=== PATIENT | female | born 1940 | race Caucasian/White ===

== ENCOUNTER 2023-11-21 09:52 | Outpatient (RCR) | payer MEDICARE, OTHER, SELFPAY ==
[2023-11-21 09:07] LABS: Hematocrit 33.8 % (37.0-47.0); Hemoglobin 11.1 g/dL (12.0-16.0); Mean Corp Hgb Conc. 32.8 g/dL (33.0-37.0); Mean Corpuscular Hgb 30.2 pg (27.0-31.0); Mean Corpuscular Volume 92.1 fL (81.0-99.0); Red Blood Cell Count 3.67 10^6/uL (4.20-5.40); Red Cell Dist. Width 22.1 % (11.5-14.5); White Blood Cell Count 19.4 10^3/uL (4.8-10.8)
[2023-11-21 09:50] LABS: % Basophils 5.7 % (0-2); % Eosinophils 4.2 % (0-6); % Lymphocytes 6.2 % (20.5-51.1); % Monocytes 19.6 % (1.7-9.3); % Neutrophils 46.3 % (42.2-75.2); Absolute Basophils 0.9 10^3/uL (0-0.2); Absolute Eosinophils 0.6 10^3/uL (0-0.7); Absolute Immature Granulocytes 2.8 10^3/uL (0-0.05); Absolute Neutrophils 7.1 10^3/uL (1.4-6.5); Nucleated Red Blood Cells % 30.2 %
[2023-11-21 09:57] LABS: PT 12.3 Sec (11.4-14.6)
[2023-11-21 10:20] LABS: ALT (SGPT) 43 U/L (0-35); AST (SGOT) 70 U/L (14-36); Albumin 4.8 g/dl (3.5-5.0); Alkaline Phosphatase 72 U/L (38-126); Blood Urea Nitrogen 20 mg/dl (7-17); Calcium 9.3 mg/dl (8.4-10.2); Carbon Dioxide 25 mmol/L (22-30); Chloride 106 mmol/L (98-107); Glucose 90 mg/dl (70-99); Iron 203 ug/dl (37-170); Percent Saturation 74 % (20-50); Potassium 4.5 mmol/L (3.5-5.1); Sodium 136 mmol/L (135-145); Total Bilirubin 1.1 mg/dl (0.2-1.3); Total Iron Binding Capacity 273 ug/dl (265-497); Total Protein 7.4 g/dl (6.3-8.2); eGFR > 60.00
[2023-11-21 11:23] LABS: Platelet Count 86 10^3/uL (130-400)
[2023-11-21 15:53] LABS: Absolute Neutrophils -Man Diff 9.8 10^3/uL (1.4-6.5); Band Neutrophils 10 % (0-3); Eosinophils 6 % (0-6); Lymphocytes 6 % (20-51); Metamyelocytes 4 % (-); Monocytes 15 % (2-9); Myelocytes 14 % (-); Segmented Neutrophils 41 % (42-75)
[2023-11-21 15:54] LABS: Blasts 4 % (-); Normal RBC Morphology No; Platelets Checked Yes
[2023-11-21 15:56] LABS: Total Cells Counted 100
[2023-11-21 15:57] LABS: Acanthocytes 1+; Hypochromasia 1+; Ovalocytes 1+; Spherocytes 1+; Stomatocytes 1+; Tear Drop Red Blood Cells 1+
== END 2023-11-22 23:59 | disposition home or self-care (01) ==
LOC: OID 09:52
PROVIDERS: ATTENDING PHYSICIAN Internal Medicine Hematology & Oncology; FAMILY PHYSICIAN Family Medicine
DX: D47.3 Essential (hemorrhagic) thrombocythemia (principal); D75.81 Myelofibrosis; R53.83 Other fatigue
CPT/HCPCS: 80053; 82728; 83540; 83550; 85025; 85610; 85730

== ENCOUNTER → 2023-12-04 09:13 | Outpatient (REF) | payer MEDICARE, OTHER, SELFPAY ==
[2023-12-04 09:40] VITALS: BP 136/75; BP_SYST 75
[2023-12-04 09:45] LABS: Hematocrit 30.7 % (37.0-47.0); Hemoglobin 9.9 g/dL (12.0-16.0); Mean Corp Hgb Conc. 32.2 g/dL (33.0-37.0); Mean Corpuscular Hgb 30.7 pg (27.0-31.0); Platelet Count 92 10^3/uL (130-400); Red Blood Cell Count 3.23 10^6/uL (4.20-5.40); Red Cell Dist. Width 22.6 % (11.5-14.5); White Blood Cell Count 16.5 10^3/uL (4.8-10.8)
[2023-12-04 10:15] VITALS: BP 105/67
[2023-12-04 10:40] LABS: Absolute Neutrophils -Man Diff 9.2 10^3/uL (1.4-6.5); Band Neutrophils 19 % (0-3); Segmented Neutrophils 37 % (42-75)
[2023-12-04 10:41] LABS: Eosinophils 2 % (0-6); Monocytes 5 % (2-9)
[2023-12-04 10:42] LABS: Metamyelocytes 4 % (-); Myelocytes 8 % (-)
[2023-12-04 10:43] LABS: Normal RBC Morphology No; Nucleated Red Blood Cells 72 (-); Platelets Checked YES
[2023-12-04 10:44] LABS: Basophilic Stippling Slight; Polychromasia Slight
[2023-12-04 10:45] LABS: Ovalocytes FEW
[2023-12-04 10:46] LABS: Blasts 1 % (-); Lymphocytes 12 % (20-51); Total Cells Counted 100
[2023-12-04] MEDS: NSS (PRESERVATIVE FREE) 0.25 ML IV (11:03)
[2023-12-04 11:41] VITALS: BP 110/63; BP_SYST 68
[2023-12-04 11:50] VITALS: BP 104/68; BP_SYST 68
[2023-12-04 12:25] VITALS: BP 104/68
== END ==
LOC: RADI 09:13
PROVIDERS: ATTENDING PHYSICIAN Nurse Practitioner Adult Health; FAMILY PHYSICIAN Nurse Practitioner Family
DX: D46.9 Myelodysplastic syndrome, unspecified (principal); D69.6 Thrombocytopenia, unspecified; D68.8 Other specified coagulation defects
CPT/HCPCS: 88305; 88311; 88312; 36415; 38222; 77012; 85025; 88313; 88341; 88342

== ENCOUNTER 2024-04-19 22:50 | Inpatient (IN) | payer MEDICARE, SELFPAY ==
[2024-04-19 18:50] VITALS: BP 123/51
[2024-04-19 19:21] LABS: Hematocrit 31.5 % (37.0-47.0); Hemoglobin 10.5 g/dL (12.0-16.0); Mean Corp Hgb Conc. 33.3 g/dL (33.0-37.0); Mean Corpuscular Hgb 30.3 pg (27.0-31.0); Mean Platelet Volume 9.5 fL (7.4-10.4); Platelet Count 110 10^3/uL (130-400); Red Blood Cell Count 3.46 10^6/uL (4.20-5.40); Red Cell Dist. Width 20.7 % (11.5-14.5); White Blood Cell Count 6.6 10^3/uL (4.8-10.8)
[2024-04-19 19:27] LABS: Lactic Acid 1.5 mmol/L (0.7-2.0)
[2024-04-19 19:29] LABS: ALT (SGPT) 28 U/L (0-35); AST (SGOT) 51 U/L (14-36); Albumin 4.4 g/dl (3.5-5.0); Alkaline Phosphatase 65 U/L (38-126); Blood Urea Nitrogen 22 mg/dl (7-17); Calcium 8.7 mg/dl (8.4-10.2); Carbon Dioxide 21 mmol/L (22-30); Chloride 100 mmol/L (98-107); Glucose 139 mg/dl (70-99); Potassium 4.1 mmol/L (3.5-5.1); Sodium 132 mmol/L (135-145); Total Bilirubin 1.3 mg/dl (0.2-1.3); Total Protein 6.8 g/dl (6.3-8.2); eGFR > 60.00
[2024-04-19 20:07] LABS: Absolute Neutrophils -Man Diff 4.6 10^3/uL (1.4-6.5); Band Neutrophils 2 % (0-3); Lymphocytes 5 % (20-51); Monocytes 3 % (2-9); Segmented Neutrophils 68 % (42-75)
[2024-04-19 20:08] LABS: Atypical Lymphocytes 3 %; Metamyelocytes 5 % (-); Myelocytes 12 % (-); Normal RBC Morphology No; Nucleated Red Blood Cells 21 (-); Platelets Checked Yes
[2024-04-19 20:09] LABS: Anisocytosis 1+; Macrocytosis 1+; Microcytosis 1+; Polychromasia Slight
[2024-04-19 20:10] LABS: Basophilic Stippling Slight; Ovalocytes Slight; Stomatocytes Slight
[2024-04-19 20:11] LABS: Tear Drop Red Blood Cells 1+; Total Cells Counted 100
--- NOTE | 2024-04-19 20:29 | ED.GENMED ---
History of Present Illness
General
Chief Complaint: Change in Mental Status
Time Seen by Provider: 04/19/24 20:29
History of Present Illness
History of Present Illness:
HPI: Patient presents with change in mental status and was last seen at her baseline yesterday around 9 PM. I spoke to the daughter at bedside who states this is a major change in her mental status. She normally is very talkative may only have
some very minor cognitive deficits at baseline; she does not have dementia. The patient is currently very limited historian.
EXAM:
GENERAL: The patient appears generally weak and debilitated
HEENT: Moist oral mucosa
CARDIOVASCULAR: No murmurs, tachycardic heart rate, regular rhythm, No chest wall tenderness
PULMONARY: No respiratory distress, breath sounds are clear and equal
ABDOMEN: Soft with no peritoneal signs, no tenderness
NEUROLOGIC: Appears generally weak in all extremities, there is no dysarthria but she does seem somewhat aphasic at times, she knows she is at '[facility]' but cannot tell me what type of building she is in
PSYCHIATRIC: The patient has limited insight and judgment and is a generally limited historian
EXTREMITIES: Ecchymosis noted to the medial aspect of the left ankle and there is some scattered areas of ecchymosis to the lower extremities
SKIN: As above
TIME OF INITIAL ENCOUNTER: 9:15 PM
NUMBER AND COMPLEXITY OF PROBLEMS ADDRESSED AT THE ENCOUNTER
� Chronic conditions affecting care: Has had abnormal white count and platelet count in the past
� Acute Exacerbation and/or Progression of Chronic Illness: This is an acute problem
� Differential Diagnosis includes: Acute viral syndrome, bacteremia, sepsis, low suspicion for meningitis as she has no apparent pain
AMOUNT AND/OR COMPLEXITY OF DATA TO BE REVIEWED AND ANALYZED
� I performed an independent evaluation of and my interpretation is:
EKG:
CT: CT of the brain personally viewed and shows no acute abnormality
X-rays:
Laboratory Studies: White count normal at 6.6, hemoglobin 10.5, sodium slightly low at 132, bicarb 21, glucose 139, lactic 1.5, CK normal
Other:
� Review of other/old records: Hemoglobin in November of this year was 9.9
� Clinical information was obtained by an independent historian: I spoke to the daughter at bedside
� Prescriptions/Medications Considered but not given:
� Further testing considered but not performed:
RISK OF COMPLICATIONS AND/OR MORBIDITY OR MORTALITY OF PATIENT MANAGEMENT
� Social determinants of health affecting care: Lives at home
� Discussion with other providers: Hospitalist, Dr. Paul for admission at 10:18 PM
� Escalation of care including admission/observation vs risk of discharge considered: The patient arrived tachycardic and febrile with rectal temperature of 104.9 Fahrenheit upon arrival. She was given a gram of Tylenol. On
reassessment at 10:15 PM, she is more interactive, awake and alert. Given her age with high fever I am concerned about the possibly of bacteremia. She initially met sepsis criteria upon arrival. Blood cultures pending.
Phy Exam
Physical Exam
Physical Exam:
See HPI
Course
Orders/Labs/Results
Orders:
Orders
04/19/24 19:06
Complete Blood Count/With Diff Urgent
Comprehensive Metabolic Panel Urgent
Creatine Phosphokinase Urgent
Comment: ADD ON
Lactic Acid Urgent
Manual Differential Urgent
Blood Culture Urgent
ALFONSO Source: Blood/Venous
Specimen Description:
Date Specimen was Collected: 04/19/24
Time Specimen was Collected: 18:56
04/19/24 19:52
CT Head W/o Iv Contrast Urgent
Comment:
Reason For Exam: change in mental status
04/19/24 20:55
Urinalysis Reflex To Culture Urgent
Date Specimen was Collected: 04/19/24
Time Specimen was Collected: 20:39
Urine Microscopic Reflex Cult Urgent
Blood Culture Urgent
ALFONSO Source: Blood/Venous
Specimen Description:
Date Specimen was Collected: 04/19/24
Time Specimen was Collected: 20:39
Urine Culture Urgent
ALFONSO Source: U
Specimen Description:
Date Specimen was Collected: 04/19/24
Time Specimen was Collected: 20:39
04/19/24 21:00
0.9% Sodium Chloride 1000 ml [Nss] 1,000 ml IV 1,000 mls/hr
Acetaminophen [Tylenol/Feverall] 1,300 mg .ROUTE .STK-MED ONE
04/19/24 21:01
Add On- LAB Urgent
Tests Added?: ck
Acetaminophen [Tylenol/Feverall] 1,000 mg RECTAL NOW STA
04/19/24 21:05
CR Chest Portable - 1 View Urgent
Comment:
Reason For Exam: fever
Reason Study Needs to be Portable: Patient Unstable
04/19/24 21:37
0.9% Sodium Chloride 500 ml [Nss] 500 ml IV BOLUS
CefTRIAXone [Rocephin] 1,000 mg IV NOW STA
04/19/24 21:43
COVID-19 Antigen Urgent
Source: Nasal Swab
Comment: ,
Influenza A+B Rapid Molecular Urgent
ALFONSO Source: Nasal Swab
Specimen Description:
Date Specimen was Collected: 04/19/24
Time Specimen was Collected: 21:39
Abnormal Lab Results
04/19/24 04/19/24
19:06 20:55
RBC 3.46 L 10^6/uL
(4.20-5.40)
Hgb 10.5 L g/dL
(12.0-16.0)
Hct 31.5 L %
(37.0-47.0)
RDW 20.7 H %
(11.5-14.5)
Plt Count 110 L 10^3/uL
(130-400)
Lymphocytes (Manual) 5 L %
(20-51)
Sodium 132 L mmol/L
(135-145)
Carbon Dioxide 21 L mmol/L
(22-30)
BUN 22 H mg/dl
(7-17)
Glucose 139 H mg/dl
(70-99)
AST 51 H U/L
(14-36)
Urine Ketones 3+ A
(Negative)
Ur Occult Blood Reflex 3+ A
(Negative)
Urine Bacteria (Reflex) Many A
(Negative)
Urine Albumin (Reflex) 1+ A
(Neg - Trace)
04/19/24 19:06
04/19/24 19:06
Vital Signs
Initial and Last Documented VS:
Initial Vital Signs
Temp Pulse Resp BP Pulse Ox
99.6 F 108 20 123/51 96
04/19/24 18:50 04/19/24 18:50 04/19/24 18:50 04/19/24 18:50 04/19/24 18:50
Last Documented Vital Signs
Temp Pulse Resp BP Pulse Ox
102.7 F H 84 20 106/48 98
04/19/24 22:00 04/19/24 22:00 04/19/24 22:00 04/19/24 22:00 04/19/24 22:00
*Critical Care Note
Total Time (30-74mins, 75-104mins- exclusive of procedures): Not Applicable
ED Attending Note
-
Portions of this chart may have been created with voice recognition software.� Occasional wrong word or��sound alike� substitutions may have occurred due to the inherent limitations of voice recognition software.
Discharge Plan
Departure
Patient Disposition: Admit
Date of Disposition: 04/19/24
Time of Disposition: 22:18
Presentation/result/management discussed w/ accepting MD/DO: Hospitalist
Discharge Problem:
Sepsis
Prescriptions:
No Action
aspirin [Aspirin Low-Strength] 81 mg Tablet,Delayed Release (Dr/Ec)
81 mg PO DAILY
timolol 0.5 % Drops
1 drp BOTH EYES DAILY
Jakafi 5 mg Tablet
5 mg PO BID
Unknown Vitamins/Supplements
1 dose PO DAILY
Patient Comments:
04/19/24: patient is unsure of what vitamins and supplements she takes
Referrals:
UNKNOWN - PT DOES,NOT KNOW [Unknown Provider] -
Interventions
Interventions:
*Risk Screen - Suicide Last Done: 04/19/24 18:50
*General Assessment Last Done: 04/19/24 18:50
*Neglect/Abuse Screening Last Done: 04/19/24 18:50
Discharge Date and Time
Print Language: MAORI
[2024-04-19 20:43] VITALS: BMI 23.9
[2024-04-19 20:44] VITALS: BP 125/56
[2024-04-19] MEDS: TYLENOL/FEVERALL 1000 MG RECTAL (21:02)
[2024-04-19 21:04] LABS: Urine Albumin 1+ (Neg - Trace); Urine Bilirubin Negative (Negative); Urine Character Clear (Clear); Urine Color Yellow; Urine Glucose Negative (Negative); Urine Ketone 3+ (Negative); Urine Leukocyte Negative (Negative); Urine Nitrite Negative (Negative); Urine Occult Blood 3+ (Negative); Urine Urobilinogen Negative (Neg - 1+)
[2024-04-19 21:10] LABS: Urine Bacteria Many (Negative); Urine Red Blood Cell 0-2 /HPF (0-2); Urine White Cell 0-2 /HPF (0-5)
[2024-04-19 21:33] LABS: Creatine Phosphokinase 59 U/L (30-135)
[2024-04-19] MEDS: NSS 500 IV (21:51)
[2024-04-19] MEDS: NSS 1000 IV (21:55)
[2024-04-19 22:00] VITALS: BP 106/48
[2024-04-19 22:08] LABS: COVID-19 Antigen Negative (Negative)
--- NOTE | 2024-04-19 22:40 | HPS.HSE ---
Family Physician
-
Family Physician: MARK Adams
Chief Complaint
-
altered mental status
History of Present Illness
83-year-old female past medical history of hyperlipidemia, osteoporosis, myeloproliferative disorder, glaucoma, presenting with change in mental status. Patient lives alone and she was last seen at her baseline yesterday around 9 PM. Today she was
very tired and noted to be lethargic with change in mental status as per daughter. Patient denies any focal symptoms apart from some mild headache. She denies neck pain, body aches, sore throat, runny nose, cough, shortness of breath, nausea or
vomiting, abdominal pain, diarrhea, urinary symptoms, abdominal pain. Her last bowel was yesterday.
Patient denies smoking or alcohol use.
Medical History
Past Medical History
Past Medical History: Reports Other (hyperlipidemia, osteoporosis, myeloproliferative disorder, glaucoma,)
Past Surgical History: Reports None
Social History
Tobacco: Non-smoker
Alcohol: None
Drug: None
Family History
Family History: Not pertinent
Allergies / Home Medications
Allergies reflects when Allergies were last updated in [employer].
Home Medications with original date entered in [employer]
Allergy/Medication List:
Allergies
Allergy/AdvReac Type Severity Reaction Status Date / Time
Sulfa (Sulfonamide Allergy Unknown Verified 04/19/24 18:50
Antibiotics)
Home Medications
aspirin 81 mg tablet,delayed release 81 mg PO DAILY 10/31/22
Unknown Vitamins/Supplements 1 dose PO DAILY 04/19/24
ruxolitinib 5 mg tablet (Jakafi) 5 mg PO BID 04/19/24
timolol 0.5 % eye drops 1 drp BOTH EYES DAILY 04/19/24
Review of Systems
-
History Source: Patient
A 12 point ROS was completed and negative except as noted: Yes
Constitutional: Reports See HPI
EENT: Reports No Symptoms
Respiratory: Reports No Symptoms
Cardiac: Reports No Symptoms
Abdomen/GI: Reports No Symptoms
: Reports No Symptoms
Musculoskeletal: Reports No Symptoms
Skin: Reports No Symptoms
Neurological: Reports No Symptoms
Endocrine: Reports No Symptoms
Hematologic/Lymphatic: Reports No Symptoms
Psych: Reports No Symptoms
Physical Exam
Vital Signs
Vital Signs
Temp Pulse Resp BP Pulse Ox
102.7 F H 84 20 106/48 98
04/19/24 22:00 04/19/24 22:00 04/19/24 22:00 04/19/24 22:00 04/19/24 22:00
Physical Exam
General: Well Developed, Well Nourished and No Apparent Distress
HEENT: NormoCephalic, Moist mucous membranes and Atraumatic
Respiratory: Clear
Cardiac: S1/S2 and Regular Rhythm; No Murmur or Rub
GI: Soft, Non Tender, Non Distended and Normal Bowel Sounds; No Organomegaly
Rectal: Deferred by Provider
Musculoskeletal: No Clubbing, No Cyanosis and No Edema
Skin: No Rash
Neuro: Nonfocal/grossly intact
Laboratory Results
-
04/19/24 19:06
04/19/24 19:06
Laboratory Results
Lactic Acid 1.5 mmol/L (0.7-2.0) 04/19/24 19:06
Total Bilirubin 1.3 mg/dl (0.2-1.3) 04/19/24 19:06
AST 51 U/L (14-36) H 04/19/24 19:06
ALT 28 U/L (0-35) 04/19/24 19:06
Alkaline Phosphatase 65 U/L (38-126) 04/19/24 19:06
Data Reviewed
-
Lab Data: Labs Reviewed by me
Old Records: Reviewed
Impression/Plan
-
IMPRESSION:
PLAN:
# SIRS (fever, tachycardia, tachypnea) unknown source
-no focal symptoms to suggest source
-2 bands on differential
-Patient's mental status is improved significantly
-Urinalysis unremarkable
-Chest x-ray negative
-COVID-negative
-Influenza negative
-Check blood cultures
-IV fluids
-Vancomycin/cefepime until blood culture results available
Myeloproliferative disorder
-On Jakafi, hold for now
Hyperlipidemia
Osteoporosis
Glaucoma
-Continue timolol drops
Full code
DVT prophylaxis�heparin
Regular diet
[2024-04-19 23:01] VITALS: BP 103/52
[2024-04-19] MEDS: ROCEPHIN 1000 MG IV (23:12)
[2024-04-19] MEDS: NSS IV ×2 (23:13→23:15)
[2024-04-20 00:15] VITALS: BP 99/69; BMI 23.6
[2024-04-20] MEDS: NSS 1000 IV ×2 (01:29→14:46)
[2024-04-20] MEDS: VANCOCIN 300 ML IV (01:30)
[2024-04-20] MEDS: VANCOCIN 300 MG IV (01:30)
[2024-04-20 07:00] VITALS: BP 104/54
--- NOTE | 2024-04-20 08:19 | PTCARENOTE ---
Relayed to Hospitalist through TT that pt temp this am was 101.2. Will give prn Tylenol, per order
[2024-04-20] MEDS: HEPARIN 5000 UNITS SC ×2 (08:24→19:13)
[2024-04-20] MEDS: TYLENOL 650 MG PO ×2 (08:24→16:22)
[2024-04-20] MEDS: ASPIR LOW (ENTERIC COATED) 81 MG PO (08:24)
[2024-04-20] MEDS: TIMOPTIC 0.5% OPHTHALMIC SOLUTION 1 DROP BOTH EYES (08:25)
[2024-04-20 08:44] LABS: Hematocrit 27.5 % (37.0-47.0); Hemoglobin 9.2 g/dL (12.0-16.0); Mean Corp Hgb Conc. 33.5 g/dL (33.0-37.0); Mean Corpuscular Hgb 30.1 pg (27.0-31.0); Mean Corpuscular Volume 89.9 fL (81.0-99.0); Nucleated Red Blood Cells % 10.8 %; Platelet Count 82 10^3/uL (130-400); Red Blood Cell Count 3.06 10^6/uL (4.20-5.40); Red Cell Dist. Width 20.8 % (11.5-14.5); White Blood Cell Count 4.4 10^3/uL (4.8-10.8)
[2024-04-20 08:55] LABS: AST (SGOT) 63 U/L (14-36); Albumin 3.4 g/dl (3.5-5.0); Alkaline Phosphatase 51 U/L (38-126); Blood Urea Nitrogen 16 mg/dl (7-17); Calcium 7.5 mg/dl (8.4-10.2); Carbon Dioxide 19 mmol/L (22-30); Chloride 108 mmol/L (98-107); Estimated Creatinine Clearance 50 ml/min; Glucose 111 mg/dl (70-99); Potassium 3.2 mmol/L (3.5-5.1); Sodium 135 mmol/L (135-145); Total Protein 5.7 g/dl (6.3-8.2); eGFR > 60.00
[2024-04-20 09:05] LABS: ALT (SGPT) 33 U/L (0-35)
--- NOTE | 2024-04-20 09:07 | PHA.VAN.IN ---
Assessment
- Assessment
Renal Function: Appears similar to baseline
Maximum Temperature: 104.9 - 04/19/24 @2044
Concomitant Antimicrobials: cefepime
AUC Dosing Plan
- Dosing Variables
Dosing Weight (kg): 60
Dosing CrCl (ml/min): 50
Vd coefficient (L/kg): 0.7
- Empiric Dosing
Initial / Loading Dose: 1500 mg - 0130 04/20
Maintenance Regimen: 1000 mg q24h - first dose later today
Estimated AUC (mcg*h/mL): 531
Estimated Peak (mcg*h/mL): 35.7
Estimated Trough (mcg/ml): 12.4
Estimated Half Life (H): 15.1
- Monitoring
No levels ordered at this time: consider levels when pt nears steady state
Pharmacokinetics Vancomycin I
- -
Patient Age: 83
Patient Sex: Female
Vancomycin Day #: 1
Indication: Bacteremia
Requesting Provider: Vinita
Pertinent Antimicrobial Allergies:
sulfonamide antibiotics
Height / Weight:
Height 5 ft 3 in
Actual Weight 60.498 kg
Pertinent Past Medical History: myelproliferative disorder ( on Jakafi)
- Vital Signs / Lab Results
Temp Pulse Resp BP Pulse Ox
101.2 F H 84 16 104/54 92
04/20/24 07:00 04/20/24 07:00 04/20/24 07:00 04/20/24 07:00 04/20/24 08:35
Lab Results - Hematology
04/19/24 04/20/24
19:06 08:07
WBC 6.6 4.4 L
Band Neutrophils 2
Lab Results - Chemistry
04/19/24 04/20/24
19:06 08:07
BUN 22 H 16
Creatinine 0.8 0.7
Estimated Creat Clear 50
Albumin 4.4 3.4 L
04/19/24
19:06
Lactic Acid 1.5
Lab Results - Urine
04/19/24 04/19/24
20:55 21:43
Urine Nitrite (Reflex) Negative Cancelled
Leukocyte Esterase Rfl Negative Cancelled
Urine WBC (Reflex) 0-2
Urine Bacteria (Reflex) Many A
Microbiology Results
04/19/24 21:43 Influenza Types A & B (DARIN) - Final
Nasal Swab Negative for Influenza A & B, NAAT
Negative results must be combined with clinical observations
and patient history.
Nucleic Acid Amplification test (NAAT)performed on the
[employer] NOW platform.
[2024-04-20 10:07] LABS: Absolute Neutrophils -Man Diff 2.9 10^3/uL (1.4-6.5); Band Neutrophils 18 % (0-3); Segmented Neutrophils 49 % (42-75)
[2024-04-20 10:08] LABS: Atypical Lymphocytes 2 %; Lymphocytes 8 % (20-51); Metamyelocytes 6 % (-); Monocytes 1 % (2-9)
[2024-04-20 10:09] LABS: Myelocytes 13 % (-); Promyelocytes 2 % (-)
[2024-04-20 10:10] LABS: Normal RBC Morphology No; Platelets Checked YES
[2024-04-20 10:11] LABS: Nucleated Red Blood Cells 12 (-)
[2024-04-20 10:12] LABS: Microcytosis FEW
[2024-04-20] MEDS: MAXIPIME 1000 MG IV ×2 (10:12→19:13)
[2024-04-20] MEDS: STERILE WATER FOR INJECTION 10 ML IV ×2 (10:12→19:13)
[2024-04-20 10:13] LABS: Hypersegmented Neutrophil FEW; Polychromasia Slight; Toxic Granulation FEW
[2024-04-20 10:14] LABS: Stomatocytes FEW
[2024-04-20 10:15] LABS: Ovalocytes FEW; Total Cells Counted 100
--- NOTE | 2024-04-20 12:08 | CM ---
power plant operations manager reviewed patient's chart and met with patient and patient lives in an apartment on her daughter's [place] property, 2-3 steps to enter, patient is independent with adl's and ambulation, no dme, patient drives, patient is currently
requiring oxygen.
Pharmacy: [facility]
PCP: Kim Hudson
Plan; Home no needs when stable.
[2024-04-20] MEDS: VANCOCIN 200 IV (13:13)
--- NOTE | 2024-04-20 13:58 | PTCARENOTE ---
Patient febrile this am but temperature came down in the afternoon. Continues with IV abx, voiding in bedside commode, pt's daughter updated on plan of care
[2024-04-20 14:47] VITALS: BP 128/74
--- NOTE | 2024-04-20 14:49 | PTCARENOTE ---
Patient was found attempting to get off bedside commode/trying to wipe self and became too weak to stand up. She had her stool in her hand. Staff got patient back into bed and cleaned up patient and supplies. Vitals signs were taken and recorded as
follows- Temp: 98.8 axillary, BP: 128/74, HR: 94, RR: 20, SpO2: 94% on 3L. Patient answered all orientation questions correctly but appeared weaker when ambulating back to bed than earlier in shift.
--- NOTE | 2024-04-20 14:57 | PTCARENOTE ---
Patient educated on using call rizvi for OOB assistance, bed alarm on and audible under patient.
[2024-04-20 15:00] VITALS: BP 122/57
--- NOTE | 2024-04-20 15:15 | W.PN.HOSP.TC ---
Today's Communication/Plan
-
continue empiric abx
Assessment / Plan
Assessment / Plan
# SIRS (fever, tachycardia, tachypnea) unknown source
WBC 4.4k
-no focal symptoms to suggest source
-2 bands on differential
-Patient's mental status is improved significantly
-Urinalysis unremarkable
-Chest x-ray negative
-COVID-negative
-Influenza negative
- blood cultures pending
-IV fluids
-Vancomycin/cefepime until blood culture results available
Pt apparently significantly improved since admission, though etio of process remains unclear
Myeloproliferative disorder
-On Jakafi, hold for now
Hyperlipidemia
Osteoporosis
Glaucoma
-Continue timolol drops
consult Inf Dis
Consult Hematology
Full code
DVT prophylaxis�heparin
Regular diet
reviewed in room with Kamla white
Anticipated Discharge: > 48 hours
Subjective/Interval History
-
Date of Service: April 20, 2024
Feeling considerably better since admission
Objective Data
-
Labs:
Laboratory Results
04/20/24
08:07
WBC 4.4 L
Hgb 9.2 L
Hct 27.5 L
Plt Count 82 L D
Sodium 135
Potassium 3.2 L
Chloride 108 H
Carbon Dioxide 19 L
BUN 16
Creatinine 0.7
Glucose 111 H
Calcium 7.5 L
Total Bilirubin 1.0
AST 63 H
ALT 33
Alkaline Phosphatase 51
Vital Signs:
Vital Signs
Temp Pulse Resp BP Pulse Ox
98.9 F 96 20 128/74 94
04/20/24 14:47 04/20/24 14:47 04/20/24 14:47 04/20/24 14:47 04/20/24 14:47
I&O
04/19/24 04/20/24 04/21/24
06:59 06:59 06:59
Intake Total 240 / 240
Balance 240 / 240
Review of Systems
-
History Source: Patient
Constitutional: Reports Fever (104.9)
EENT: Reports No Symptoms Reported
Respiratory: Denies Cough or Trouble Breathing
Cardiac: Reports No Symptoms
Genitourinary: Denies Dysuria
Neuro: Reports No Symptoms
Physical Exam
-
General: Well Developed, Well Nourished and No Apparent Distress
HEENT: Normocephalic, Atraumatic and Moist Mucous Membranes
Respiratory: Clear to Auscultation; Negative Wheezes, Rales or Rhonchi
Cardiac: Regular Rhythm and S1/S2
GI: Soft, Nontender and Nondistended
Musculoskeletal: No Clubbing, No Cyanosis and No Edema
Neuro: Awake, Alert and Oriented
[2024-04-20 23:15] VITALS: BP 127/75
[2024-04-21] MEDS: NSS 1000 IV (02:18)
[2024-04-21] MEDS: VANCOCIN 200 IV (05:15)
[2024-04-21 07:00] VITALS: BP 116/56
[2024-04-21] MEDS: TYLENOL 650 MG PO ×2 (08:22→16:44)
[2024-04-21] MEDS: HEPARIN 5000 UNITS SC ×2 (08:22→19:38)
[2024-04-21] MEDS: ASPIR LOW (ENTERIC COATED) 81 MG PO (08:22)
[2024-04-21] MEDS: MAXIPIME 1000 MG IV ×2 (08:23→19:37)
[2024-04-21] MEDS: TIMOPTIC 0.5% OPHTHALMIC SOLUTION 1 DROP BOTH EYES (08:23)
[2024-04-21] MEDS: STERILE WATER FOR INJECTION 10 ML IV ×2 (08:23→19:38)
--- NOTE | 2024-04-21 09:28 | PHA.VAN.FU ---
Vancomycin Assessment / Plan
- Assessment
Renal Function: Stable
WBC's are: Trending Down
In the past 24 hrs, patient has been: Febrile (max temp 103 04/20 1500)
Concomitant Antimicrobials: cefepime
- Dosing Plan
Continue: vancomycin 1000 mg q24h
- Monitoring Plan
No level(s) ordered at this time: consider levels when pt reaches steady state if still on
- Follow Up
Pharmacy will continue to follow.
Vancomycin Follow UP
- -
Patient Age: 83
Patient Sex: Female
Vancomycin Day #: 2
Indication: Bacteremia
Requesting Provider: Vinita
Pertinent Antimicrobial Allergies:
sulfonamide antibiotics
Height / Weight:
Height 5 ft 3 in
Actual Weight 60.498 kg
Pertinent Past Medical History: myelproliferative disorder ( on Jakafi)
- Vital Signs / Lab Results
Temp Pulse Resp BP Pulse Ox
100.4 F H 76 18 116/56 94
04/21/24 07:00 04/21/24 07:00 04/21/24 07:00 04/21/24 07:00 04/21/24 07:00
Lab Results - Hematology
04/19/24 04/20/24
19:06 08:07
WBC 6.6 4.4 L
Band Neutrophils 2 18 H D
Lab Results - Chemistry
04/19/24 04/20/24
19:06 08:07
BUN 22 H 16
Creatinine 0.8 0.7
Estimated Creat Clear 50
Albumin 4.4 3.4 L
04/19/24
19:06
Lactic Acid 1.5
Microbiology Results
04/19/24 20:55 Urine Culture - Final
Urine NO GROWTH
04/19/24 20:55 Blood Culture - Preliminary
Blood/Venous No Growth in 24 hours- Final report to follow
04/19/24 19:06 Blood Culture - Preliminary
Blood/Venous No Growth in 24 hours- Final report to follow
04/19/24 21:43 Influenza Types A & B (DARIN) - Final
Nasal Swab Negative for Influenza A & B, NAAT
Negative results must be combined with clinical observations
and patient history.
Nucleic Acid Amplification test (NAAT)performed on the
[employer] platform.
--- NOTE | 2024-04-21 11:06 | CON.ID ---
Consultation
-
Date/Time Consultation Requested: April 20, 2024 1530
Date/Time Consultation Performed: April 21, 2024 1100
Requesting Provider: Dr. Mayito Morales
Performing Provider: Dr. Gaviota Mo
Reason for Consultation: MDS, fever
Chief Complaint / Past History
Chief Complaint
Weakness
History of Present Illness
87-year-old female with history of myeloproliferative disorder on Jakafi who started feeling unwell 2 days ago. She was very tired and weak. She had mild frontal headache. She slept most of the day and then went shopping and came home and slept
again. When her daughter came over, patient noted to be very lethargic and confused. She was brought to the hospital April 19. Patient was febrile 104.9. She was started on vancomycin and cefepime. Blood cultures negative to date. Urine culture
negative. Chest x-ray no pneumonia. Patient's mental status has improved. However she is still very tired and sleepy. She denies ill contacts. No known tick or insect bites [place]. She
has 1 dog. No sinus congestion or sore throat. No cough or shortness of breath. No nausea vomiting abdominal pain or diarrhea. No dysuria or flank pain. No rash.
Past History
Additional Past Medical History:
Myeloproliferative disorder on Jakafi
Dyslipidemia
Osteoporosis
Allergy History:
Sulfa (Sulfonamide Antibiotics) Allergy (Verified 04/19/24 18:50)
Unknown
Medications Reviewed: Yes
Current Antibiotics:
Vancomycin
Cefepime
Social History
Tobacco: Non-Smoker
Alcohol: None
Drug: None
Living: Alone
Family History
Family History: Not Pertinent
Review of Systems
Review of Systems
General: Change in Appetite; Negative Chills
HEENT: Negative Sinus Problems or Pharyngitis
Cardiovascular: Negative Chest Pain or Dyspnea
Respiratory: Negative Dyspnea or Cough
Gasteroenterology: Other (no diarrhea); Negative Nausea or Vomiting
Genital / Urological: Negative Dysuria or Flank Pain
Endocrine: Weakness
Musculoskeletal: Negative Arthralgias
Skin / Hair / Nails: Negative Rash
Neurological: Negative Dizziness
All systems: All other systems were reviewed and were negative
Vital Signs
Temp Pulse Resp BP Pulse Ox
100.4 F H 76 18 116/56 94
04/21/24 07:00 04/21/24 07:00 04/21/24 07:00 04/21/24 07:00 04/21/24 07:00
Selected Entries
04/20/24
15:00
Temp 103 F H
Physical Exam
Physical Exam
Constitutional: No Acute Distress
Head: Other (No frontal or maxillary sinus tenderness)
Eyes: No Conjunctival Hemorrhage and Sclera Anicteric
Cardiovascular: Regular Rate and S1/S2
Pulmonary: Clear
Gastrointestinal: Soft, Non Tender, Non Distended and Normal Bowel Sounds
Genito-Urinary: Negative CVA Tenderness
Extremities: Negative Edema
Musculoskeletal: Negative Joint Swelling or Joint Effusion
Neurological: AO x 3 and Other (Drowsy); Negative Meningeal Signs
Lab / Diagnostic Study Results
04/20/24 08:07
04/20/24 08:07
Total Counted 100 04/20/24 08:07
Abs Neuts (Manual) 2.9 10^3/uL (1.4-6.5) 04/20/24 08:07
Segmented Neutrophils 49 % (42-75) 04/20/24 08:07
Band Neutrophils 18 % (0-3) H D 04/20/24 08:07
Lymphocytes (Manual) 8 % (20-51) L 04/20/24 08:07
Basophils (Manual) 1 % 04/20/24 08:07
Lactic Acid 1.5 mmol/L (0.7-2.0) 04/19/24 19:06
Microbiology Results
Micro:
04/19/24 20:55 Urine Culture - Final
Urine NO GROWTH
04/19/24 20:55 Blood Culture - Preliminary
Blood/Venous No Growth in 24 hours- Final report to follow
04/19/24 19:06 Blood Culture - Preliminary
Blood/Venous No Growth in 24 hours- Final report to follow
04/19/24 21:43 Influenza Types A & B (DARIN) - Final
Nasal Swab Negative for Influenza A & B, NAAT
Negative results must be combined with clinical observations
and patient history.
Nucleic Acid Amplification test (NAAT)performed on the
[email or web address] NOW platform.
04/19/24 CXR: The lungs are clear without evidence of focal interstitial or airspace opacity to indicate pneumonia.
04/19/[address]: No acute intracranial abnormality noted.
Assessment / Plan
# Fever
# Myeloproliferative disorder on Jakafi
# Pancytopenia
- fever work-up neg to date
neg COVID/Flu, Ucx, blood cx, CXR
- Check tickbone illness panel and Babesia smear in am
-Start empiric doxycyline.
- Continue cefepime for now.
-DC Vancomycin.
- Follow temps.
[2024-04-21] MEDS: VIBRAMYCIN 100 MG PO ×2 (13:08→19:37)
[2024-04-21] MEDS: KCL 20 MEQ PO (14:44)
[2024-04-21 15:00] VITALS: BP 115/66
--- NOTE | 2024-04-21 15:18 | W.PN.HOSP.TC ---
Today's Communication/Plan
-
K supplement
continue IVF
recheck labs
recheck CXR
PT/OT
Assessment / Plan
Assessment / Plan
# SIRS (fever, tachycardia, tachypnea, TME) probably sepsis, source most likely PNA
will repeat CXR
WBC 4.4k
-no focal symptoms to suggest source
-2 bands on differential
-Patient's mental status is improved significantly, still not back to baseline
-Urinalysis unremarkable
-Chest x-ray negative
will repeat, consider chest CT
-COVID-negative
-Influenza negative
- blood cultures NGTD
-IV fluids
-Vancomycin stopped by ID and started Doxy/cefepime until blood culture results available
Pt apparently significantly improved since admission, though etio of process remains unclear, with chest congestion noted, PNA becomes a concern
Myeloproliferative disorder
-On Jakafi, hold for now
consult placed and discussed with Dr. Armas
K 4.1-->3.2
Hypokalemia, will supplement
recheck tomorrow
Hyperlipidemia
Osteoporosis
Glaucoma
-Continue timolol drops
consulted Inf Dis
Consult Hematology
input from both appreciated
Full code
DVT prophylaxis�heparin
Regular diet
reviewed in room with Kamla white 04/20
Anticipated Discharge: > 48 hours
Subjective/Interval History
-
Date of Service: April 21, 2024
Feels slightly better today, still very weak
Objective Data
-
Vital Signs:
Vital Signs
Temp Pulse Resp BP Pulse Ox
98.0 F 76 18 116/56 94
04/21/24 13:17 04/21/24 07:00 04/21/24 07:00 04/21/24 07:00 04/21/24 08:00
I&O
04/20/24 04/21/24 04/22/24
06:59 06:59 06:59
Intake Total 240 / 240 1120 / 1120
Balance 240 / 240 1120 / 1120
Review of Systems
-
History Source: Patient
Constitutional: Reports Fever (104.9 on admission, today 98.0-100.4) and Weakness
EENT: Reports No Symptoms Reported
Respiratory: Denies Cough or Trouble Breathing
Cardiac: Reports No Symptoms
Genitourinary: Denies Dysuria
Neuro: Reports No Symptoms
Physical Exam
-
General: Well Developed, Well Nourished and No Apparent Distress
HEENT: Normocephalic, Atraumatic and Moist Mucous Membranes
Respiratory: Wheezes (coarse expiratory wheeze); Negative Clear to Auscultation (significantly improved air movement today), Rales or Rhonchi
Cardiac: Regular Rhythm and S1/S2
GI: Soft, Nontender and Nondistended
Musculoskeletal: No Clubbing, No Cyanosis and No Edema
Neuro: Awake, Alert and Oriented
[2024-04-21] MEDS: D5/0.45%NSS with KCL 20 MEQ 1000 IV (15:54)
[2024-04-21 23:34] VITALS: BP 120/66
[2024-04-22 07:32] LABS: Hematocrit 26.3 % (37.0-47.0); Hemoglobin 9.1 g/dL (12.0-16.0); Mean Corp Hgb Conc. 34.6 g/dL (33.0-37.0); Mean Corpuscular Hgb 30.1 pg (27.0-31.0); Mean Corpuscular Volume 87.1 fL (81.0-99.0); Platelet Count 33 10^3/uL (130-400); Red Blood Cell Count 3.02 10^6/uL (4.20-5.40); Red Cell Dist. Width 20.3 % (11.5-14.5)
[2024-04-22 08:10] VITALS: BP 117/69
[2024-04-22 08:15] LABS: Absolute Neutrophils -Man Diff 1.7 10^3/uL (1.4-6.5); Anisocytosis 1+; Band Neutrophils 13 % (0-3); Lymphocytes 14 % (20-51); Metamyelocytes 5 % (-); Monocytes 2 % (2-9); Myelocytes 4 % (-); Normal RBC Morphology No; Nucleated Red Blood Cells 2 (-); Ovalocytes 1+; Platelets Checked Yes; Segmented Neutrophils 62 % (42-75)
[2024-04-22 08:16] LABS: Tear Drop Red Blood Cells 1+; Total Cells Counted 100
[2024-04-22 08:17] LABS: White Blood Cell Count 2.3 10^3/uL (4.8-10.8)
[2024-04-22 08:19] LABS: Blood Urea Nitrogen 16 mg/dl (7-17); Calcium 7.7 mg/dl (8.4-10.2); Carbon Dioxide 22 mmol/L (22-30); Chloride 110 mmol/L (98-107); Estimated Creatinine Clearance 59 ml/min; Glucose 124 mg/dl (70-99); Sodium 137 mmol/L (135-145); eGFR > 60.00
[2024-04-22] MEDS: HEPARIN 5000 UNITS SC (08:31)
[2024-04-22] MEDS: ASPIR LOW (ENTERIC COATED) 81 MG PO (08:31)
[2024-04-22] MEDS: STERILE WATER FOR INJECTION 10 ML IV (08:33)
[2024-04-22] MEDS: KCL 20 MEQ PO (08:33)
[2024-04-22] MEDS: VIBRAMYCIN 100 MG PO ×2 (08:34→19:57)
[2024-04-22] MEDS: MAXIPIME 1000 MG IV (08:34)
[2024-04-22] MEDS: TIMOPTIC 0.5% OPHTHALMIC SOLUTION 1 DROP BOTH EYES (08:34)
[2024-04-22] MEDS: D5/0.45%NSS with KCL 20 MEQ 1000 IV (08:37)
[2024-04-22 09:09] VITALS: BP 117/69; PULSE 81; O2SAT 98
[2024-04-22 09:16] VITALS: BP 117/69; PULSE 83; O2SAT 97
--- NOTE | 2024-04-22 10:18 | W.PN.HOSP.TC ---
Addendum entered and electronically signed by Romie Auguste MD 04/22/24 21:56:
Attending Addendum-
I saw and evaluated the patient. I reviewed the resident�s note and agree with findings and plan as documented in the resident�s note. Sub: patient feels upset that she has to stay longer to be further evaluated. Seen with daugther present. Feels
fatigued and 'phlemy' Was febrile in last 24 hours. Full 12 point ROS reviewed and negative except as documented Exam: Vitals reviewed in chart GEN-NAD heart RRR lungs decreased BS RLL abd soft LE no edema Plan:
# Sepsis, source most likely PNA
-CXR 04/21-personally reviewed RLL opacity
-WBC trending down / ANC 1.7
-Patient's mental status is improved significantly, still not back to baseline
-Urinalysis unremarkable
-blood cultures NGTD
-Vancomycin and now cefepime stopped by ID - appreciate input
-cont Doxy day 2
-tickborne panel pending- peripheral smear pending for babesia
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
- cont to hold Jakafi
- appreciate onc input
- plts and and wbc decreased further unclear etiology possibly from jakofi- anticipate improvement off jakofi
- monitor for improvement
- if continues may need BMbx as OP
- repeat CBC with diff in am
- hemolysis labs pending
#Hypokalemia
- replete
- check mag
- repeat BMP in am
# Glaucoma
-Continue timolol drops
Full code
DVT prophylaxis�heparin on hold due to thrombocytopenia
Regular diet
reviewed in room with Kamla white 04/22
Time spent coordinating care, review of plan of care with resident, personally reviewed records in EMR, med rec, consults, notes, labs, radiology, d/w nursing, heme/onc, and POA/daughter� 55 mins
Original Note:
Today's Communication/Plan
-
Continue Doxycycline
recheck labs
continue KCL
Assessment / Plan
Assessment / Plan
# SEPSIS- source most likely PNA
- 04/22 CXR showed new patch of opacity in RLL
- WBC 2.3k
- continue doxycycline 100mg Q12
- Patient's mental status is improved significantly
- COVID-negative
- Influenza negative
- suspicion of tickborne illness: ruled out by negative blood culture
# Myeloproliferative disorder
-On Jakafi, hold for now per heme/onc
- Would not expect holding Jakafi to cause decrease in platelet count.
- Hold heparin with platelets now <50k.
DIC panel: fibrinogen elevated, APTT elevated but pt on SQ heparin, D-dimer significantly elevated. Will review smear for evidence of microangiopathic process and send hemolysis labs. No renal failure to suggest TTP.
Platelets could be low due to infection and/or antibiotics but drop seems out of proportion to severity of illness.
# Hypokalemia
K 4.1-->3.2--> 3.0
- continue potassium chloride
- recheck tomorrow
# Glaucoma
-Continue timolol drops
Full code
DVT prophylaxis�heparin
Regular diet
Anticipated Discharge: > 48 hours
Subjective/Interval History
-
Date of Service: April 22, 2024
Objective Data
-
Labs:
Laboratory Results
04/22/24
06:49
WBC 2.3 L*
Hgb 9.1 L
Hct 26.3 L
Plt Count 33 L D
Sodium 137
Potassium 3.0 L
Chloride 110 H
Carbon Dioxide 22
BUN 16
Creatinine 0.5 L
Glucose 124 H
Calcium 7.7 L
Vital Signs:
Vital Signs
Temp Pulse Resp BP Pulse Ox
98.1 F 85 18 117/69 97
04/22/24 08:10 04/22/24 08:10 04/22/24 08:10 04/22/24 08:10 04/22/24 08:10
I&O
04/21/24 04/22/24 04/23/24
06:59 06:59 06:59
Intake Total 1119
Balance 1119
Review of Systems
-
History Source: Patient
Constitutional: Denies Fever
Respiratory: Denies Trouble Breathing
Cardiac: Denies No Symptoms
Genitourinary: Denies Dysuria, Frequency or Urgency
Neuro: Reports No Symptoms
Physical Exam
-
General: Well Developed, Well Nourished and Comfortable
HEENT: Normocephalic and Atraumatic
Respiratory: Decreased Breath Sounds (Right lovely the lower lobe)
Cardiac: Regular Rhythm and S1/S2
GI: Nontender
Neuro: Awake, Alert, Oriented and AO x 3
Data Reviewed
-
Labs: Labs Reviewed by me and Discussed with Patient
--- NOTE | 2024-04-22 11:33 | W.PN.ID1 ---
Date of Service
Date of Service: April 22, 2024
Today's Communication
See below.
Assessment / Plan
# Fever
- fever work-up neg to date
neg COVID/Flu, Ucx, blood cx, CXR
-[place]pect [place]
- Tickbone illness panel and Babesia smear pending
- Continue empiric doxycycline (d2) for now.
- DC cefepime
- Follow temps.
# Myeloproliferative disorder on Jakafi (on hold)
- Daughter is concern pt is not on Jakafi while in hospital
- Awaiting Hem/Onc input.
# Worsening pancytopenia
- ?due to possible tickborne illness vs underlying myelofibrosis vs
-Follow CBC.
Chief Complaint
-: Fever
Subjective / Review of Systems
Daughter at bedside.
Pt's confusion resolved.
Feels weak. Poor appetite.
Vital Signs / Physical Exam
Vital Signs
Vital Signs
Temp Pulse Resp BP Pulse Ox
98.1 F 85 18 117/69 92
04/22/24 08:10 04/22/24 08:10 04/22/24 08:10 04/22/24 08:10 04/22/24 08:30
Physical Exam
Constitutional: No Acute Distress
Cardiovascular: Regular Rate and S1/S2
Pulmonary: Clear
Gastrointestinal: Soft, Non Tender, Non Distended and Normal Bowel Sounds
Extremities: Negative Edema
Neurological: AO x 3
Objective Data
Lab Data
Lab Results
04/22/24 06:49
04/22/24 06:49
Estimated Creat Clear 59 ml/min 04/22/24 06:49
Lactic Acid 1.5 mmol/L (0.7-2.0) 04/19/24 19:06
Total Bilirubin 1.0 mg/dl (0.2-1.3) 04/20/24 08:07
AST 63 U/L (14-36) H 04/20/24 08:07
ALT 33 U/L (0-35) 04/20/24 08:07
Alkaline Phosphatase 51 U/L (38-126) 04/20/24 08:07
Most recent labs reviewed.
Micro Results:
04/22/24 06:49 Blood Parasites Smear - Pending
Blood/Venous
04/19/24 20:55 Blood Culture - Preliminary
Blood/Venous No Growth in 48 hours- Final report to follow
04/19/24 19:06 Blood Culture - Preliminary
Blood/Venous No Growth in 48 hours- Final report to follow
04/19/24 20:55 Urine Culture - Final
Urine NO GROWTH
04/19/24 21:43 Influenza Types A & B (DARIN) - Final
Nasal Swab Negative for Influenza A & B, NAAT
Negative results must be combined with clinical observations
and patient history.
Nucleic Acid Amplification test (NAAT)performed on the
[employer] platform.
04/19/24 CXR: The lungs are clear without evidence of focal interstitial or airspace opacity to indicate pneumonia.
04/19/[address]: No acute intracranial abnormality noted.
--- NOTE | 2024-04-22 12:00 | CM ---
Patient seen with daughter, discussed PT recommendation of home health, daughter and patient agreeable. Updated [facility] on referral. Patient hopeful to discharge today. CM will continue to follow for all discharge planning needs.
Plan; home with [facility] pending acceptance.
--- NOTE | 2024-04-22 14:22 | VNURNOTE ---
Home Health Liaison spoke with patient's daughter Kamla to discuss [facility] nurse/therapy, visits, schedule and homebound status. She is agreeable and understands that visits at home will be 2-3 x per week to assess and teach medical management. Offered
to provide [facility] contact information, daughter declined. Daughter aware that [facility] will contact them for start of care in 1-2 days after discharge from . [facility] referral completed in [facility].
[2024-04-22 14:54] LABS: INR 1.05; PT 13.5 Sec (11.4-14.6)
[2024-04-22 14:55] LABS: Fibrinogen 504 MG/DL (199-459)
[2024-04-22 14:56] LABS: APTT 77.3 Sec (23.4-35.0)
[2024-04-22 15:57] VITALS: BP 123/79
--- NOTE | 2024-04-22 16:32 | CON.ONC ---
Impression
Impression
JAK2 myeloproliferative disorder/MDS overlap syndrome
Thrombocytopenia, new
Pneumonia presenting with mental status change
Plan
Plan
Hold Jakafi for now. Would not expect holding Jakafi to cause decrease in platelet count.
Hold heparin with platelets now <50k. Platelets dropped within 1 day of admission without known heparin exposure in last few months -> 3T score of 3 representing low index of suspicion for HIT
DIC panel sent: fibrinogen normal, PTT elevated but pt on SQ heparin, D-dimer significantly elevated. Will review smear for evidence of microangiopathic process and send hemolysis labs. No renal failure to suggest TTP.
Platelets could be low due to infection and/or antibiotics but drop seems out of proportion to severity of illness.
Thank you for consult, will follow along with you.
Patient History
History of Present Illness
83 yo woman well known to me from the outpt setting for history of myelofibrosis. She continues on Jakafi. 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
in blasts. Pt came to the hospital with change in mental status on 04/19. She has improved on abx. Initial infectious workup negative for
Past-Medical/Surgical History
PMHx
hyperlipidemia, osteoporosis, myeloproliferative disorder, glaucoma
Social History
Tobacco: Non-smoker
Alcohol: None
Drug: None
Family History
Family History: Not pertinent
Patient Medication
�Medication �Instructions �Recorded �Confirmed �Last Taken �Type
aspirin 81 mg tablet,delayed 81 mg PO DAILY Blood Clot 10/31/22 04/19/24 10/31/22 History
release Prevention/Tx
Unknown Vitamins/Supplements 1 dose PO DAILY Supplement 04/19/24 04/19/24 Unknown History
ruxolitinib 5 mg tablet (Jakafi) 5 mg PO BID Autoimmune Disorder 04/19/24 04/19/24 Unknown History
timolol 0.5 % eye drops 1 drp BOTH EYES DAILY Eye Condition 04/19/24 04/19/24 Unknown History
Active Medications
Generic Name Dose Route Start Last Admin
Trade Name Freq PRN Reason Stop Dose Admin
Acetaminophen 650 mg 04/20/24 01:00 04/21/24 16:44
Acetaminophen 325 Mg Tablet PO 05/18/24 00:59 650 mg
Q4HPRN PRN Administration
mild pain/WALL/temp> 100.4F
Aspirin 81 mg 04/20/24 08:00 04/22/24 08:31
Aspirin 81 Mg (Enteric Coated) Tablet PO 05/18/24 07:59 81 mg
DAILY VON Administration
Doxycycline Hyclate 100 mg 04/21/24 12:00 04/22/24 08:34
Doxycycline 100 Mg Capsule PO 100 mg
Q12 VON Administration
Potassium Chloride/Dextrose/Sod Cl 20 meq in 1,000 mls @ 60 mls/hr 04/21/24 16:00 04/22/24 08:37
D5/0.45%Nss With Kcl 20 Meq IV 1,000 mls
[id number] VON Administration
Ibuprofen 400 mg 04/20/24 00:17
Ibuprofen 400 Mg Tablet PO 05/18/24 00:16
Q6HPRN PRN
mild pain
Potassium Chloride 20 meq 04/21/24 14:00 04/22/24 08:33
Potassium Chloride 20 Meq Extended Release Tablet PO 05/19/24 13:59 20 meq
DAILY VON Administration
Sodium Chloride 0 flush 04/20/24 01:00
Sodium Chloride 0.9% (Flush) Syringe IV 05/18/24 00:59
PER PROTOCOL VON
Timolol Maleate 1 drop 04/20/24 08:00 04/22/24 08:34
Timolol 0.5% (Ophthalmic Solution) Bottle BOTH EYES 05/18/24 07:59 1 drop
DAILY VON Administration
Review of Systems
-
History Source: Patient and Records
Constitutional: Reports Fever, No Appetite and Fatigue
EENT: Reports No Symptoms
Respiratory: Reports Cough and Trouble Breathing
Cardiac: Reports No Symptoms
GI: Reports No Symptoms
Breast: Reports No Symptoms
: Reports No Symptoms
Musculoskeletal: Reports No Symptoms
Skin: Reports No Symptoms
Neuro: Reports Other (mildy confused)
Endocrine: Reports No Symptoms
Hematologic/Lymphatic: Reports No Symptoms
Allergy / Immunology: Reports No Symptoms
Psych: Reports No Symptoms
Physical Exam
-
General: Well Developed and Well Nourished
HEENT: Moist Mucous Membranes; Negative Jaundice
Cardiology: Normal Sinus Rhythm, S1 and S2
Pulmonary: Wheezes and Rhonchi
GI: Soft
Genito-Urinary: Deferred by me
Musculoskeletal: No Clubbing, No Cyanosis and No Edema
Extremities: No C/C/E
Neurology: Non Focal and No Lateralizing Symptoms
Skin: Warm and Dry
Hematologic / Lymphatic: No Lymphadenopathy
Psych: Calm
Labs
Lab Results
WBC 2.3 10^3/uL (4.8-10.8) L* 04/22/24 06:49
RBC 3.02 10^6/uL (4.20-5.40) L 04/22/24 06:49
Hgb 9.1 g/dL (12.0-16.0) L 04/22/24 06:49
Hct 26.3 % (37.0-47.0) L 04/22/24 06:49
MCV 87.1 fL (81.0-99.0) 04/22/24 06:49
MCH 30.1 pg (27.0-31.0) 04/22/24 06:49
MCHC 34.6 g/dL (33.0-37.0) 04/22/24 06:49
RDW 20.3 % (11.5-14.5) H 07/01/24 06:49
Plt Count 33 10^3/uL (130-400) L D 04/22/24 06:49
MPV Not Reportable 04/22/24 06:49
Creatinine 0.5 mg/dL (0.6-1.0) L 04/22/24 06:49
Vital Signs
Vital Signs
Temp Pulse Resp BP Pulse Ox
99.3 F 80 18 123/79 97
04/22/24 15:57 04/22/24 15:57 04/22/24 15:57 04/22/24 15:57 04/22/24 15:57
[2024-04-22 17:13] LABS: Reticulocyte Count 1.2 % (0.4-2.8)
[2024-04-22 17:34] LABS: ALT (SGPT) 34 U/L (0-35); AST (SGOT) 136 U/L (14-36); Albumin 2.8 g/dl (3.5-5.0); Alkaline Phosphatase 50 U/L (38-126); Direct Bilirubin 0.6 mg/dl (0.0-0.4); Total Bilirubin 1.1 mg/dl (0.2-1.3)
[2024-04-22 18:10] LABS: LDH 1803 U/L (120-246)
[2024-04-22 23:41] VITALS: BP 130/83
[2024-04-22] MEDS: TYLENOL 650 MG PO (23:49)
[2024-04-23 07:00] VITALS: BP 124/73
[2024-04-23 07:26] LABS: Hematocrit 26.8 % (37.0-47.0); Hemoglobin 8.8 g/dL (12.0-16.0); Mean Corp Hgb Conc. 32.8 g/dL (33.0-37.0); Mean Corpuscular Hgb 29.6 pg (27.0-31.0); Mean Corpuscular Volume 90.2 fL (81.0-99.0); Platelet Count 41 10^3/uL (130-400); Red Blood Cell Count 2.97 10^6/uL (4.20-5.40); Red Cell Dist. Width 20.1 % (11.5-14.5); White Blood Cell Count 3.1 10^3/uL (4.8-10.8)
[2024-04-23 08:18] LABS: Blood Urea Nitrogen 18 mg/dl (7-17); Calcium 7.7 mg/dl (8.4-10.2); Carbon Dioxide 25 mmol/L (22-30); Chloride 106 mmol/L (98-107); Estimated Creatinine Clearance 59 ml/min; Glucose 111 mg/dl (70-99); Magnesium 2.2 mg/dl (1.6-2.3); Potassium 3.5 mmol/L (3.5-5.1); Sodium 135 mmol/L (135-145); eGFR > 60.00
[2024-04-23] MEDS: VIBRAMYCIN 100 MG PO ×2 (08:24→19:38)
[2024-04-23] MEDS: ASPIR LOW (ENTERIC COATED) 81 MG PO (08:24)
[2024-04-23] MEDS: KCL 20 MEQ PO (08:24)
[2024-04-23] MEDS: TIMOPTIC 0.5% OPHTHALMIC SOLUTION 1 DROP BOTH EYES (08:24)
[2024-04-23 09:54] LABS: Absolute Neutrophils -Man Diff 1.8 10^3/uL (1.4-6.5); Band Neutrophils 26 % (0-3); Eosinophils 3 % (0-6); Lymphocytes 15 % (20-51); Metamyelocytes 9 % (-); Monocytes 0 % (2-9); Myelocytes 9 % (-); Plasmacytoid Lymphocytes 4 %; Segmented Neutrophils 34 % (42-75)
[2024-04-23 09:55] LABS: Acanthocytes 1+; Anisocytosis 1+; Hypochromasia 1+; Normal RBC Morphology No; Nucleated Red Blood Cells 3 (-); Ovalocytes 1+; Platelets Checked Yes; Polychromasia 1+; Schistocytes FEW; Tear Drop Red Blood Cells 1+; Total Cells Counted 100; Toxic Granulation 2+
--- NOTE | 2024-04-23 09:58 | W.PN.HOSP.TC ---
Addendum entered and electronically signed by Romie Auguste MD 04/23/24 21:54:
Attending Addendum-
I saw and evaluated the patient. I reviewed the resident�s note and agree with findings and plan as documented in the resident�s note. Sub: per nursing was confused overnight. patient adamantly denying. 'I cant stay longer than the fourth. You guys
don't seem like you know what your doing.' Was febrile in last 24 hours. Full 12 point ROS reviewed and negative except as documented Exam: Vitals reviewed in chart GEN-NAD heart RRR lungs decreased BS RLL abd soft LE no edema Plan:
# Sepsis, source proabable PNA
-CXR 04/21-personally reviewed RLL opacity
-WBC improving
-Patient's mental status is improved significantly, still not back to baseline
-Urinalysis unremarkable
-blood cultures NGTD
-Vancomycin and cefepime DC'd
-cont Doxy day 3 start rocephin per ID
-tickborne panel-P, peripheral smear negative for babesia
# FUO-
- check non infectious causes
- if continues to be febrile on ceftriaxone and doxy will marie ct
- PCT- 6.44
- check YESSICA/HIV
- with fever and CIMS may check LP if persists (ct head WNL)
# Transaminitis-
- r/o acute hepatitis
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
- cont to hold Jakafi
- appreciate onc input
- plts and and wbc improving, possibly from jakofi- anticipate improvement off jakofi
- monitor for improvement
- if continues may need repeat BMbx as OP
- repeat CBC with diff in am
- hemolysis labs pending
#Hypokalemia
- resolved
- check mag- WNL
- repeat BMP in am
# Glaucoma
-Continue timolol drops
Full code
DVT prophylaxis�heparin on hold due to thrombocytopenia
Regular diet
Time spent coordinating care, review of plan of care with resident, personally reviewed records in EMR, med rec, consults, notes, labs, radiology, d/w nursing, ID� 58 mins
Original Note:
Today's Communication/Plan
-
- Continue Doxycycline
- recheck labs
- start rocephin
Assessment / Plan
Assessment / Plan
# SEPSIS- source most likely PNA
- 04/22 CXR showed patchy opacity in RLL
- WBC 3.1k
- continue doxycycline 100mg Q12
- Patient's mental status is improved significantly
- Influenza negative
- suspicion of tickborne illness: ruled out by negative smear
# Fever of unknown Origin
- hepatitis profile, [place], YESSICA, HIV, COVID pending
- IV rocephin 2000mg per ID
- ID recs appreciated
# Myeloproliferative disorder
- cont to hold Jakafi
- appreciate onc input
- plts and and wbc slightly improved
- repeat CBC with diff in am
# Hypokalemia
- resolved
- potassium chloride prn
# Glaucoma
-Continue timolol drops
Full code
DVT prophylaxis�heparin on hold due to thrombocyntopenia
Regular diet
Anticipated Discharge: 24 - 48 hours
Subjective/Interval History
-
Date of Service: April 23, 2024
Objective Data
-
Labs:
Laboratory Results
04/23/24
06:59
WBC 3.1 L
Hgb 8.8 L
Hct 26.8 L
Plt Count 41 L D
Sodium 135
Potassium 3.5
Chloride 106
Carbon Dioxide 25
BUN 18 H
Creatinine 0.6
Glucose 111 H
Calcium 7.7 L
Vital Signs:
Vital Signs
Temp Pulse Resp BP Pulse Ox
97.6 F 87 18 124/73 97
04/23/24 07:00 04/23/24 07:00 04/23/24 07:00 04/23/24 07:00 04/23/24 07:00
I&O
04/22/24 04/23/24 04/24/24
06:59 06:59 06:59
Intake Total 2219 / 2219 1000 / 1000
Balance 2219 / 2219 1000 / 1000
Review of Systems
-
History Source: Patient
Constitutional: Reports Fatigue
Respiratory: Denies Trouble Breathing
Cardiac: Denies Chest Pain
Abdomen/GI: Denies Abdominal Pain or Diarrhea
Genitourinary: Denies Dysuria or Frequency
Musculoskeletal: Denies Joint Pain
Neuro: Denies Headache
Endocrine: Denies Polyuria or Polydipsia
Physical Exam
-
General: Well Developed, Well Nourished and Comfortable
HEENT: Normocephalic and Atraumatic
Respiratory: Decreased Breath Sounds (Right)
Cardiac: Regular Rhythm
GI: Soft, Nontender and Nondistended
Neuro: Awake, Alert, Oriented and AO x 3
Psych: Calm
Data Reviewed
-
Labs: Labs Reviewed by me, Discussed with Physician and Discussed with Patient
--- NOTE | 2024-04-23 10:55 | W.PN.ID1 ---
Date of Service
Date of Service: April 23, 2024
Today's Communication
Continue doxycycline
Add ceftriaxone.
Assessment / Plan
Myeloproliferative/MDS disorder on Jakafi (on hold)
# Fever
-trending down
- neg COVID/Flu, Ucx, blood cx
-Follow temps
#[place]
# Worsening pancytopenia
- Babesia smear negative
- Sendout Tickborne illness panel pending
- Continue empiric doxycycline (d3) x 14 to 21d course
-Leukopenia and thrombocytopenia with mild improvement
-Follow CBC
# RLL PNA on repeat CXR
- Pt without significant respiratory sxs
- Cefepime (d3) dc'd yesterday
- Resume abx. Start ceftriaxone today (day 4 abx)
-Continue doxycycline (d3)
Chief Complaint
-: Fever and Pneumonia
Subjective / Review of Systems
per nurse, pt slightly confused today.
pt still with poor appetite and feels weak.
denies cough
Vital Signs / Physical Exam
Vital Signs
Vital Signs
Temp Pulse Resp BP Pulse Ox
97.6 F 87 18 124/73 97
04/23/24 07:00 04/23/24 07:00 04/23/24 07:00 04/23/24 07:00 04/23/24 07:00
Selected Entries
04/22/24
23:41
Temp 100.5 F H
Physical Exam
Constitutional: Comfortable
Eyes: Sclera Anicteric
Cardiovascular: Regular Rate and S1/S2
Pulmonary: Coarse (right base)
Gastrointestinal: Soft, Non Tender, Non Distended and Normal Bowel Sounds
Genito-Urinary: Negative CVA Tenderness
Neurological: Awake and Alert
Objective Data
Lab Data
Lab Results
04/23/24 06:59
04/23/24 06:59
PT 13.5 Sec (11.4-14.6) 04/22/24 14:20
INR 1.05 04/22/24 14:20
APTT 77.3 Sec (23.4-35.0) H 04/22/24 14:20
Estimated Creat Clear 59 ml/min 04/23/24 06:59
Lactic Acid 1.5 mmol/L (0.7-2.0) 04/19/24 19:06
Total Bilirubin Cancelled 04/22/24 16:55
AST Cancelled 04/22/24 16:55
ALT Cancelled 04/22/24 16:55
Alkaline Phosphatase Cancelled 04/22/24 16:55
Most recent labs reviewed.
Micro Results:
04/19/24 20:55 Blood Culture - Preliminary
Blood/Venous No Growth in 72 hours- Final report to follow
04/19/24 19:06 Blood Culture - Preliminary
Blood/Venous No Growth in 72 hours- Final report to follow
04/22/24 06:49 Blood Parasites Smear - Final
Blood/Venous
04/19/24 20:55 Urine Culture - Final
Urine NO GROWTH
04/19/24 21:43 Influenza Types A & B (DARIN) - Final
Nasal Swab Negative for Influenza A & B, NAAT
Negative results must be combined with clinical observations
and patient history.
Nucleic Acid Amplification test (NAAT)performed on the
[employer] platform.
04/21/24 CXR: New patchy opacity in the right lower lobe is noted.
04/19/24 CXR: The lungs are clear without evidence of focal interstitial or airspace opacity to indicate pneumonia.
04/19/[address]: No acute intracranial abnormality noted.
[2024-04-23 11:03] LABS: Procalcitonin 6.44 ng/ml (0.0-0.25)
--- NOTE | 2024-04-23 11:53 | CM ---
Spoke with patient bedside.
Plan is home with daughter and son in law, they will transport.
[facility] to follow.
Patient aware of CM availability should d/c needs arise.
Plan:home with [facility] when stable.
[2024-04-23] MEDS: STERILE WATER FOR INJECTION 20 ML IV (11:57)
[2024-04-23] MEDS: ROCEPHIN 2000 MG IV (11:59)
--- NOTE | 2024-04-23 14:09 | W.PN.ONC ---
Today's Communication / Plan
-
Hematologically fairly stable. 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 Jakafi has been held, I suspect permanently. This can occasionally cause a reaction similar to a
cytokine storm, she needs to be monitored for this. I did inform her daughter of this. This can occur anytime within about 3 weeks of stopping the medication.
Impression
Impression
JAK2 myeloproliferative disorder/MDS overlap syndrome
Thrombocytopenia, new
Pneumonia presenting with mental status change
Plan
Plan
Hold Jakafi for now. Would not expect holding Jakafi to cause decrease in platelet count.
Hold heparin with platelets now <50k. Platelets dropped within 1 day of admission without known heparin exposure in last few months -> 3T score of 3 representing low index of suspicion for HIT
DIC panel sent: fibrinogen normal, PTT elevated but pt on SQ heparin, D-dimer significantly elevated. Will review smear for evidence of microangiopathic process and send hemolysis labs. No renal failure to suggest TTP.
Platelets could be low due to infection and/or antibiotics but drop seems out of proportion to severity of illness.
Thank you for consult, will follow along with you.
Subjective/Objective
Subjective/Objective
She says she is feeling a little better. She reports no new symptoms. Examination is unchanged.
Vital Signs:
Vital Signs
Temp Pulse Resp BP Pulse Ox
97.6 F 87 18 124/73 94
04/23/24 07:00 04/23/24 07:00 04/23/24 07:00 04/23/24 07:00 04/23/24 08:00
Lab Results:
Laboratory Data
WBC 3.1 10^3/uL (4.8-10.8) L 04/23/24 06:59
Hgb 8.8 g/dL (12.0-16.0) L 04/23/24 06:59
Plt Count 41 10^3/uL (130-400) L D 04/23/24 06:59
PT 13.5 Sec (11.4-14.6) 04/22/24 14:20
INR 1.05 04/22/24 14:20
APTT 77.3 Sec (23.4-35.0) H 04/22/24 14:20
eGFR > 60.00 04/23/24 06:59
[2024-04-23 15:00] VITALS: BP 116/73
[2024-04-23 17:53] LABS: Monotest Negative (Negative)
[2024-04-23 18:07] LABS: COVID-19 Antigen Negative (Negative)
[2024-04-23 19:22] LABS: HIV Combo Negative (Negative)
[2024-04-23 23:00] VITALS: BP 114/65
[2024-04-24 03:00] VITALS: BP 126/63
[2024-04-24 07:00] VITALS: BP 109/70
[2024-04-24 07:35] LABS: Hematocrit 24.6 % (37.0-47.0); Hemoglobin 8.2 g/dL (12.0-16.0); Mean Corp Hgb Conc. 33.3 g/dL (33.0-37.0); Mean Corpuscular Hgb 29.7 pg (27.0-31.0); Mean Corpuscular Volume 89.1 fL (81.0-99.0); Red Blood Cell Count 2.76 10^6/uL (4.20-5.40); Red Cell Dist. Width 19.9 % (11.5-14.5); White Blood Cell Count 5.5 10^3/uL (4.8-10.8)
[2024-04-24 07:58] LABS: ALT (SGPT) 83 U/L (0-35); AST (SGOT) 176 U/L (14-36); Albumin 2.6 g/dl (3.5-5.0); Alkaline Phosphatase 78 U/L (38-126); Blood Urea Nitrogen 21 mg/dl (7-17); Calcium 7.7 mg/dl (8.4-10.2); Carbon Dioxide 23 mmol/L (22-30); Chloride 106 mmol/L (98-107); Estimated Creatinine Clearance 59 ml/min; Glucose 118 mg/dl (70-99); Potassium 3.6 mmol/L (3.5-5.1); Sodium 134 mmol/L (135-145); Total Bilirubin 0.5 mg/dl (0.2-1.3); Total Protein 4.7 g/dl (6.3-8.2); eGFR > 60.00
[2024-04-24] MEDS: ASPIR LOW (ENTERIC COATED) 81 MG PO (08:09)
[2024-04-24] MEDS: KCL 20 MEQ PO (08:09)
[2024-04-24] MEDS: TIMOPTIC 0.5% OPHTHALMIC SOLUTION 1 DROP BOTH EYES (08:09)
[2024-04-24] MEDS: VIBRAMYCIN 100 MG PO ×2 (08:10→21:18)
[2024-04-24 08:51] LABS: Platelet Count 48 10^3/uL (130-400)
[2024-04-24 09:12] LABS: Absolute Neutrophils -Man Diff 2.6 10^3/uL (1.4-6.5); Atypical Lymphocytes 11 %; Band Neutrophils 15 % (0-3); Eosinophils 4 % (0-6); Lymphocytes 25 % (20-51); Metamyelocytes 9 % (-); Monocytes 0 % (2-9); Myelocytes 2 % (-); Normal RBC Morphology No; Nucleated Red Blood Cells 1 (-); Platelets Checked Yes; Segmented Neutrophils 34 % (42-75)
[2024-04-24 09:13] LABS: Anisocytosis 1+; Hypochromasia 1+; Ovalocytes 1+; Polychromasia 1+; Total Cells Counted 100
--- NOTE | 2024-04-24 09:24 | W.PN.HOSP.TC ---
Addendum entered and electronically signed by Romie Auguste MD 04/24/24 21:19:
Attending Addendum-
I saw and evaluated the patient. I reviewed the resident�s note and agree with findings and plan as documented in the resident�s note. Sub: no further fevers 'you wouldn't understand what is going on as its not from this earth. You have limited
capacity to understand' Full 12 point ROS reviewed and negative except as documented Exam: Vitals reviewed in chart GEN-NAD heart RRR lungs decreased BS RLL abd soft LE no edema Neuro AAO x 3 Plan:
# Sepsis, source proabable PNA
-CXR 04/21-personally reviewed RLL opacity
-WBC improving
-Patient's mental status is variable
-repeat UA
-blood cultures NGTD
-Vancomycin and cefepime DC'd
-cefepime->rocephin->cefdinir complete 10 day total course
-cont Doxy day 02/10
-tickborne panel-P
-peripheral smear negative for babesia
# Transaminitis-
- worsening
- r/o acute hepatitis
- check RUQ US
# CIMS/Acute Delirium
- likely has underlying dementia
- r/o metabolic infectious abnormalities
- check ammonia
- repeat urine
# JAK2 MPD/MDS overlap syndrome- pancytopenia
- cont to hold Jakafi billyley permanently
- appreciate onc input
- plts and and wbc improving, possibly from jakofi- anticipate continued improvement off jakofi
- monitor for improvement
- repeat CBC with diff in am
#Hypokalemia
- resolved
- check mag- WNL
- repeat BMP in am
# Mild Hyponatremia-
- hypovolemia
- encourage PO
- repeat BMP in am
# Glaucoma
-Continue timolol drops
Full code
DVT prophylaxis�heparin on hold due to thrombocytopenia
Regular diet
Dispo- eventual DC home with HC likely- refusing PT assessment
Time spent coordinating care, review of plan of care with resident, personally reviewed records in EMR, med rec, consults, notes, labs, radiology, d/w nursing, ID� 56 mins
Original Note:
Today's Communication/Plan
-
- Continue Doxycycline
- recheck labs
- start cefdinir by ID
- Hepatitis profile, YESSICA
- order USG Liver, UA, Serum ammonia
Assessment / Plan
Assessment / Plan
# SEPSIS- source most likely PNA
- 04/21 CXR showed patchy opacity in RLL
- WBC 5.5k
- continue doxycycline 100mg Q12 day 4
- Patient's mental status is improved significantly
- Influenza negative
- suspicion of tickborne illness: ruled out by negative smear
# Fever of unknown Origin
- Covid negative
- hepatitis profile, [place], YESSICA, HIV, COVID pending
- PO cefdinir in place of IV rocephin 2000mg per ID
- PCT. 6.44
- Covid, HIV, MONO negative
- YESSICA, hepatitis profile pending
- pending UA, Liver USG and serum ammonia(LFTs elevated)
- repeat Blood culture if febrile
# Myeloproliferative disorder
- cont to hold Jakafi
- plts and Wbc improving
- repeat CBC with diff in am
# Hypokalemia
- resolved
- potassium chloride prn
# Glaucoma
-Continue timolol drops
Full code
DVT prophylaxis�heparin on hold due to thrombocyntopenia
Regular diet
Anticipated Discharge: 24 - 48 hours
Subjective/Interval History
-
Date of Service: April 24, 2024
Objective Data
-
Labs:
Laboratory Results
04/24/24
07:08
WBC 5.5
Hgb 8.2 L
Hct 24.6 L
Plt Count 48 L
Sodium 134 L
Potassium 3.6
Chloride 106
Carbon Dioxide 23
BUN 21 H
Creatinine 0.6
Glucose 118 H
Calcium 7.7 L
Total Bilirubin 0.5
AST 176 H
ALT 83 H
Alkaline Phosphatase 78
Vital Signs:
Vital Signs
Temp Pulse Resp BP Pulse Ox
97.5 F 82 18 109/70 95
04/24/24 07:00 04/24/24 07:00 04/24/24 07:00 04/24/24 07:00 04/24/24 07:00
I&O
04/23/24 04/24/24 04/25/24
06:59 06:59 06:59
Intake Total 1000 / 1000 1800 / 1800
Balance 1000 / 1000 1800 / 1800
Review of Systems
-
History Source: Patient
Constitutional: Reports No Symptoms
Respiratory: Denies Cough
Cardiac: Denies Chest Pain
Musculoskeletal: Denies Joint Pain
Physical Exam
-
General: Well Developed and Well Nourished
HEENT: Normocephalic and Atraumatic
Respiratory: Clear to Auscultation
Cardiac: Regular Rhythm and S1/S2
GI: Soft and Nontender
Skin: Warm and Dry
Neuro: Awake and Alert
Psych: Calm
Data Reviewed
-
Labs: Labs Reviewed by me, Discussed with Physician and Discussed with Patient
[2024-04-24] MEDS: ROCEPHIN 2000 MG IV (11:30)
[2024-04-24] MEDS: STERILE WATER FOR INJECTION 20 ML IV (11:30)
--- NOTE | 2024-04-24 12:19 | W.PN.ONC ---
Today's Communication / Plan
-
Hematologically stable. She will remain off the Jakafi. We will see her in the office in 2 to 3 weeks.
Impression
Impression
JAK2 myeloproliferative disorder/MDS overlap syndrome
Thrombocytopenia, new
Pneumonia presenting with mental status change
Plan
Plan
See today's plan.
Subjective/Objective
Subjective/Objective
She is feeling somewhat better. She reports no new symptoms. Examination is unchanged.
Vital Signs:
Vital Signs
Temp Pulse Resp BP Pulse Ox
97.5 F 82 18 109/70 95
04/24/24 07:00 04/24/24 07:00 04/24/24 07:00 04/24/24 07:00 04/24/24 07:00
Lab Results:
Laboratory Data
WBC 5.5 10^3/uL (4.8-10.8) 04/24/24 07:08
Hgb 8.2 g/dL (12.0-16.0) L 04/24/24 07:08
Plt Count 48 10^3/uL (130-400) L 04/24/24 07:08
PT 13.5 Sec (11.4-14.6) 04/22/24 14:20
INR 1.05 04/22/24 14:20
APTT 77.3 Sec (23.4-35.0) H 04/22/24 14:20
eGFR > 60.00 04/24/24 07:08
[2024-04-24 13:10] LABS: Haptoglobin 118 mg/dL (30-200)
[2024-04-24 15:00] VITALS: BP 115/69
--- NOTE | 2024-04-24 16:52 | W.PN.ID1 ---
Date of Service
Date of Service: April 24, 2024
Today's Communication
day 5 of 10 of cephalosporin - switched to cefdinir to finish the course
Continue empiric doxycycline (d3) x 14 to 21d course
would require convalescent serologies in two weeks to confirm suspected tick born illness
follow up with pcp,
Assessment / Plan
Myeloproliferative/MDS disorder on Jakafi (on hold)
# Fever - resolved
-trending down
- neg COVID/Flu, Ucx, blood cx
-Follow temps
#[place]pect [place]
# Leukopenia - resolved, persistent bicytopenia
- Babesia smear negative
- Sendout Tickborne illness panel pending - would require convalescent serologies in two weeks to confirm
- Continue empiric doxycycline (d3) x 14 to 21d course
- Leukopenia resolved and thrombocytopenia with mild improvement, transaminitis persist
- follow up with pcpc
# RLL PNA on repeat CXR
- Pt without significant respiratory sxs
- procalcitonin was 6.44 on 04/23
- day 5 of 10 of cephalosporin - switched to cefdinir to finish the course
- Continue doxycycline (d3)
Chief Complaint
-: Fever and Pneumonia
Subjective / Review of Systems
afebrile
bp stable
leukopenia resolved
plt improving
cr 0.6
babesia smear negative
procal 6.44
transaminitis persists
'Genia been to a hospital in [facility] where everything was set up to ensure the full comfort of the patient. Today Im tired here because so many people have come in to interrupt me throughout the day.'
I explained that Im not in administration, if she wishes she may write a letter to the board but I feel her expectations of not being 'interrupted' through the day are not reasonable.
Vital Signs / Physical Exam
Vital Signs
Vital Signs
Temp Pulse Resp BP Pulse Ox
97.6 F 87 18 115/69 96
04/24/24 15:00 04/24/24 15:00 04/24/24 15:00 04/24/24 15:00 04/24/24 15:00
Physical Exam
Constitutional: No Acute Distress
Cardiovascular: Regular Rate and S1/S2; Negative Murmur or Rub
Pulmonary: Clear and Symmetric; Negative Wheezes or Rales
Gastrointestinal: Soft, Non Tender, Non Distended and Normal Bowel Sounds
Skin: Warm and Dry; Negative Rash or Jaundice
Objective Data
Lab Data
Lab Results
04/24/24 07:08
04/24/24 07:08
PT 13.5 Sec (11.4-14.6) 04/22/24 14:20
INR 1.05 04/22/24 14:20
APTT 77.3 Sec (23.4-35.0) H 04/22/24 14:20
Estimated Creat Clear 59 ml/min 04/24/24 07:08
Lactic Acid 1.5 mmol/L (0.7-2.0) 04/19/24 19:06
Total Bilirubin 0.5 mg/dl (0.2-1.3) 04/24/24 07:08
AST 176 U/L (14-36) H 04/24/24 07:08
ALT 83 U/L (0-35) H 04/24/24 07:08
Alkaline Phosphatase 78 U/L (38-126) 04/24/24 07:08
Most recent labs reviewed.
Micro Results:
04/19/24 20:55 Blood Culture - Preliminary
Blood/Venous No Growth in 4 days- Final report to follow
04/19/24 19:06 Blood Culture - Preliminary
Blood/Venous No Growth in 4 days- Final report to follow
04/22/24 06:49 Blood Parasites Smear - Final
Blood/Venous
04/19/24 20:55 Urine Culture - Final
Urine NO GROWTH
04/19/24 21:43 Influenza Types A & B (DARIN) - Final
Nasal Swab Negative for Influenza A & B, NAAT
Negative results must be combined with clinical observations
and patient history.
Nucleic Acid Amplification test (NAAT)performed on the
[employer] platform.
04/21/24 CXR: New patchy opacity in the right lower lobe is noted.
04/19/24 CXR: The lungs are clear without evidence of focal interstitial or airspace opacity to indicate pneumonia.
04/19/[address]: No acute intracranial abnormality noted.
[2024-04-24 23:15] VITALS: BP 139/78
[2024-04-25 07:27] VITALS: BP 110/58
[2024-04-25 07:42] LABS: % Eosinophils 4.1 % (0-6); % Immature Granulocytes 7.4 % (0-0.5); % Lymphocytes 44.6 % (20.5-51.1); % Monocytes 3.5 % (1.7-9.3); % Neutrophils 39.4 % (42.2-75.2); Absolute Basophils 0.1 10^3/uL (0-0.2); Absolute Eosinophils 0.4 10^3/uL (0-0.7); Absolute Immature Granulocytes 0.8 10^3/uL (0-0.05); Absolute Lymphocytes 4.5 10^3/uL (1.2-3.4); Absolute Monocytes 0.4 10^3/uL (0.1-0.6); Hematocrit 24.1 % (37.0-47.0); Hemoglobin 8.4 g/dL (12.0-16.0); Mean Corp Hgb Conc. 34.9 g/dL (33.0-37.0); Mean Corpuscular Hgb 30.1 pg (27.0-31.0); Mean Corpuscular Volume 86.4 fL (81.0-99.0); Nucleated Red Blood Cells % 1.1 %; Platelet Count 62 10^3/uL (130-400); Red Blood Cell Count 2.79 10^6/uL (4.20-5.40); Red Cell Dist. Width 19.9 % (11.5-14.5); White Blood Cell Count 10.1 10^3/uL (4.8-10.8)
[2024-04-25 07:51] LABS: Blood Urea Nitrogen 15 mg/dl (7-17); Calcium 7.5 mg/dl (8.4-10.2); Carbon Dioxide 27 mmol/L (22-30); Chloride 102 mmol/L (98-107); Estimated Creatinine Clearance 59 ml/min; Glucose 109 mg/dl (70-99); Potassium 3.5 mmol/L (3.5-5.1); Sodium 132 mmol/L (135-145); eGFR > 60.00
[2024-04-25 07:56] LABS: Ammonia < 9 umol/L (9-30)
[2024-04-25] MEDS: VIBRAMYCIN 100 MG PO ×2 (08:08→16:14)
[2024-04-25] MEDS: OMNICEF 300 MG PO ×2 (08:08→16:15)
[2024-04-25] MEDS: ASPIR LOW (ENTERIC COATED) 81 MG PO (08:08)
[2024-04-25] MEDS: KCL 20 MEQ PO (08:08)
[2024-04-25] MEDS: TIMOPTIC 0.5% OPHTHALMIC SOLUTION 1 DROP BOTH EYES (08:10)
[2024-04-25 10:15] LABS: ALT (SGPT) 104 U/L (0-35); AST (SGOT) 123 U/L (14-36); Albumin 2.6 g/dl (3.5-5.0); Alkaline Phosphatase 83 U/L (38-126); Direct Bilirubin 0.4 mg/dl (0.0-0.4); Total Bilirubin 0.6 mg/dl (0.2-1.3); Total Protein 4.7 g/dl (6.3-8.2)
--- NOTE | 2024-04-25 12:37 | W.PN.ID1 ---
Date of Service
Date of Service: April 25, 2024
Today's Communication
Continue antibiotics.
Assessment / Plan
Myeloproliferative/MDS disorder on Jakafi (on hold)
# Fever - resolved
-trending down
- neg COVID/Flu, Ucx, blood cx
-Follow temps
#Suspect [place]
# Leukopenia - resolved, persistent bicytopenia
- Babesia smear negative
- Sendout Tickborne illness panel pending - would require convalescent serologies in two weeks to confirm
- Continue empiric doxycycline (d#4) x 14 to 21d course
- Leukopenia resolved and thrombocytopenia with mild improvement, transaminitis persist
- follow up with PCP
# RLL PNA on repeat CXR
- Pt without significant respiratory sxs
- procalcitonin was 6.44 on 04/23
- day 5 of 10 of cephalosporin - switched to cefdinir to finish the course
- Continue doxycycline (d#4)
Chief Complaint
-: Fever and Pneumonia
Subjective / Review of Systems
Review of Systems: No Fever and No Chills
Vital Signs / Physical Exam
Vital Signs
Vital Signs
Temp Pulse Resp BP Pulse Ox
98.6 F 82 16 110/58 96
04/25/24 07:27 04/25/24 07:27 04/25/24 07:27 04/25/24 07:27 04/25/24 07:27
Physical Exam
Constitutional: No Acute Distress, Comfortable and Non-toxic
Eyes: Sclera Anicteric
Pulmonary: Non Labored
Gastrointestinal: Non Distended
Skin: Negative Rash or Jaundice
Neurological: Awake and Alert
Psychological: Calm
Objective Data
Lab Data
Lab Results
04/25/24 07:32
04/25/24 07:32
PT 13.5 Sec (11.4-14.6) 04/22/24 14:20
INR 1.05 04/22/24 14:20
APTT 77.3 Sec (23.4-35.0) H 04/22/24 14:20
Estimated Creat Clear 59 ml/min 04/25/24 07:32
Lactic Acid 1.5 mmol/L (0.7-2.0) 04/19/24 19:06
Total Bilirubin 0.6 mg/dl (0.2-1.3) 04/25/24 07:32
AST 123 U/L (14-36) H 04/25/24 07:32
ALT 104 U/L (0-35) H 04/25/24 07:32
Alkaline Phosphatase 83 U/L (38-126) 04/25/24 07:32
Most recent labs reviewed.
Micro Results:
04/19/24 20:55 Blood Culture - Final
Blood/Venous No Growth - Final Report
04/19/24 19:06 Blood Culture - Final
Blood/Venous No Growth - Final Report
04/24/24 18:57 Blood Culture - Pending
Blood/Venous
04/22/24 06:49 Blood Parasites Smear - Final
Blood/Venous
04/19/24 20:55 Urine Culture - Final
Urine NO GROWTH
04/19/24 21:43 Influenza Types A & B (DARIN) - Final
Nasal Swab Negative for Influenza A & B, NAAT
Negative results must be combined with clinical observations
and patient history.
Nucleic Acid Amplification test (NAAT)performed on the
[employer] platform.
04/21/24 CXR: New patchy opacity in the right lower lobe is noted.
04/19/24 CXR: The lungs are clear without evidence of focal interstitial or airspace opacity to indicate pneumonia.
04/19/[address]: No acute intracranial abnormality noted.
--- NOTE | 2024-04-25 13:38 | W.DCSUMMARY ---
Addendum entered and electronically signed by Romie Auguste MD 04/26/24 03:38:
Read, reviewed, and agree. See same day progress note for additional details.
Sherwin Auguste MD
Original Note:
Documented by User: Marco Valenzuela MD, Resident 04/25/24 18:10
Discharge Summary
Discharge Data
Date of Admission: 04/19/24
Date of Discharge: 04/25/24
-
Pending Results: Yes
Hospital Course
Discharging Physician : Marco Valenzuela MD ; Romie Auguste MD
Disposition : Home with NV
Primary care physician : Kim Hudson
Principal Discharge diagnosis : Sepsis-post probable right lower lobe pneumonia
Chronic Discharge diagnosis : Glaucoma, myelo proliferative disorder, hyperlipidemia, osteoporosis
Hospital Course : 83-year-old female with a known past medical history of hyperlipidemia, osteoporosis, myelo proliferative disorder, glaucoma presented with change in mental status and lethargy. She met SIRS criteria on her initial evaluation and
was admitted for further evaluation and treatment. X-ray chest shows patchy opacity in the right lower lung suggesting pneumonia and she was started on IV antibiotics which was later converted to p.o. she developed pancytopenia during her stay and
heme-onc was consulted and her Jakafi was held which led to improvement in platelets and WBCs. Her mental status improved significantly with the use of antibiotics and clearing of pneumonia and she remained stable and afebrile for more than 48
hours before discharge. Upon discussing with the family her current mental condition was found to be her baseline and she was discharged home with visiting nurse. She was instructed to complete the remaining course of antibiotics at home. She
verified understanding and plan to choose a provider who is covered by her insurance to get an ultrasound of her abdomen/liver.
Important imaging findings : CXR: Patchy opacity in the right lower lung suggesting pneumonia.
Discharge Plan
-
Patient Disposition: Home (Routine Discharge)
Discharge Diagnosis/Procedures: Sepsis secondary to pneumonia, hypokalemia, mild hyponatremia, myeloproliferative disorder, glaucoma, transaminitis
Condition: Good
Diet: No restrictions
Activity: No restrictions
Driving Restrictions: As prior to admission
Bathing Restrictions: None
Others Tests: Recommended to get ultrasound abdomen/liver
Other Services: VN
Referrals:
Bri Gandhi MD [Active] - in less than 1 week
Kim Hudson CRNP [Family Provider] - in less than 1 week
Additional Discharge Medication Instructions: Cefdinir 300 mg capsule by mouth twice daily for 5 days
Doxycycline 100 mg capsule by mouth twice daily for 9 days, continue for additional 5 days if current test come back positive
Stop Jakafi 5 mg tablets until you see hematology.
Prescriptions:
New
cefdinir 300 mg Capsule
300 mg PO Q12 5 Days Qty: 10 0RF
doxycycline hyclate 100 mg Capsule
100 mg PO Q12 9 Days Qty: 18 0RF
Continued
aspirin 81 mg Tablet,Delayed Release (Dr/Ec)
81 mg PO DAILY
timolol 0.5 % Drops
1 drp BOTH EYES DAILY
Unknown Vitamins/Supplements
1 dose PO DAILY
Patient Comments:
04/19/24: patient is unsure of what vitamins and supplements she takes
Discontinued
Jakafi 5 mg Tablet
5 mg PO BID
Discharge Orders:
Discharge Patient (As Directed); Ordered 04/25/24
Ordered By: Sourav Pierce
Discharge Date and Time
Discharge Date/Time: 04/25/24 16:27
Print Language: CITIZEN [place]

Documented by User: Sourav Pierce MD, Resident 04/25/24 15:05
Discharge Summary
Discharge Data
Date of Admission: 04/19/24
Date of Discharge: 04/25/24
Hospital Course
Discharging Physician :
Disposition :
Primary care physician :
Principal Discharge diagnosis :
Chronic Discharge diagnosis :
Hospital Course :
Important imaging findings :
Procedure findings :
Discharge Plan
-
Patient Disposition: Home (Routine Discharge)
Discharge Diagnosis/Procedures: Sepsis secondary to pneumonia, hypokalemia, mild hyponatremia, myeloproliferative disorder, glaucoma, transaminitis
Condition: Good
Diet: No restrictions
Activity: No restrictions
Driving Restrictions: As prior to admission
Bathing Restrictions: None
Others Tests: Recommended to get ultrasound abdomen/liver
Other Services: VN
Referrals:
Bri Gandhi MD [Active] - in less than 1 week
Kim Hudson CRNP [Family Provider] - in less than 1 week
Additional Discharge Medication Instructions: Cefdinir 300 mg capsule by mouth twice daily for 5 days
Doxycycline 100 mg capsule by mouth twice daily for 9 days, continue for additional 5 days if current test come back positive
Stop Jakafi 5 mg tablets until you see hematology.
Prescriptions:
New
cefdinir 300 mg Capsule
300 mg PO Q12 5 Days Qty: 10 0RF
doxycycline hyclate 100 mg Capsule
100 mg PO Q12 9 Days Qty: 18 0RF
Continued
aspirin 81 mg Tablet,Delayed Release (Dr/Ec)
81 mg PO DAILY
timolol 0.5 % Drops
1 drp BOTH EYES DAILY
Unknown Vitamins/Supplements
1 dose PO DAILY
Patient Comments:
04/19/24: patient is unsure of what vitamins and supplements she takes
Discontinued
Jakafi 5 mg Tablet
5 mg PO BID
Discharge Orders:
Discharge Patient (As Directed); Ordered 04/25/24
Ordered By: Sourav Pierce
Discharge Date and Time
Discharge Date/Time: 04/25/24 16:27
Print Language: CITIZEN OF [place]

Documented by User: Romie Auguste MD 04/26/24 03:29
Discharge Summary
Discharge Data
Date of Admission: 04/19/24
Date of Discharge: 04/26/24
Discharge Plan
-
Patient Disposition: Home (Routine Discharge)
Discharge Diagnosis/Procedures: Sepsis secondary to pneumonia, hypokalemia, mild hyponatremia, myeloproliferative disorder, glaucoma, transaminitis
Condition: Good
Diet: No restrictions
Activity: No restrictions
Driving Restrictions: As prior to admission
Bathing Restrictions: None
Others Tests: Recommended to get ultrasound abdomen/liver
Other Services: VN
Referrals:
Bri Gandhi MD [Active] - in less than 1 week
Kim Hudson CRNP [Family Provider] - in less than 1 week
Additional Discharge Medication Instructions: Cefdinir 300 mg capsule by mouth twice daily for 5 days
Doxycycline 100 mg capsule by mouth twice daily for 9 days, continue for additional 5 days if current test come back positive
Stop Jakafi 5 mg tablets until you see hematology.
Prescriptions:
New
cefdinir 300 mg Capsule
300 mg PO Q12 5 Days Qty: 10 0RF
doxycycline hyclate 100 mg Capsule
100 mg PO Q12 9 Days Qty: 18 0RF
Continued
aspirin 81 mg Tablet,Delayed Release (Dr/Ec)
81 mg PO DAILY
timolol 0.5 % Drops
1 drp BOTH EYES DAILY
Unknown Vitamins/Supplements
1 dose PO DAILY
Patient Comments:
04/19/24: patient is unsure of what vitamins and supplements she takes
Discontinued
Jakafi 5 mg Tablet
5 mg PO BID
Discharge Orders:
Discharge Patient (As Directed); Ordered 04/25/24
Ordered By: Sourav Pierce
Discharge Date and Time
Discharge Date/Time: 04/25/24 16:27
Print Language: CITIZEN OF [place]
[2024-04-25 15:33] VITALS: BP 112/63
--- NOTE | 2024-04-25 17:51 | W.PN.HOSP.TC ---
Addendum entered and electronically signed by Romie Auguste MD 04/26/24 03:37:
Attending Addendum-
I saw and evaluated the patient. I reviewed the resident�s note and agree with findings and plan as documented in the resident�s note. Sub: no further fevers seen with POA/daughter present, requesting to go home. No complaints. per POA baseline
mentation Full 12 point ROS reviewed and negative except as documented Exam: Vitals reviewed in chart GEN-NAD heart RRR lungs decreased BS RLL abd soft LE no edema Neuro AAO x 3
Plan:
# Sepsis, source probable PNA
-CXR 04/21-personally reviewed RLL opacity
-WBC improving
-Patient's mental status is back to baseline
-repeat UA- no infection
-blood cultures NGTD
-Vancomycin and cefepime DC'd
-cefepime->rocephin->cefdinir complete 10 day total course
-cont Doxy day 03/05
-tickborne panel-P
-peripheral smear negative for babesia
- DC home on po abx
# Transaminitis-
- r/o acute hepatitis
- check RUQ US as OP
# CIMS/Acute Delirium
- has underlying dementia
- back to baseline mentation
- check ammonia
- repeat urine
# JAK2 MPD/MDS overlap syndrome- pancytopenia
- resolving
- cont to hold Jakafi likely permanently
- appreciate onc input
- plts and and wbc improving, possibly from jakofi- anticipate continued improvement off jakofi
#Hypokalemia
- resolved
- check mag- WNL
# Mild Hyponatremia-
- na stable
- f/u PCP for BMP in one week
- hypovolemia
- encourage PO
# Glaucoma
-Continue timolol drops
Full code
DVT prophylaxis�heparin on hold due to thrombocytopenia
Regular diet
Dispo- DC home with HC/daughter
Time spent coordinating care, DC planning, review of DC plan of care with resident, transition of care, review of records, med rec, consults, notes, d/w consultants, nursing, POA, and CM� 36 mins
- all parties in agreement for DC and close follow reviewed of pending labs
Original Note:
Today's Communication/Plan
-
Discharge home with visiting nurse
Recommended outpatient ultrasound upper abdomen/liver
Continue Doxy for 9 more days to complete 14-day course
Continue cefdinir for 5 more days
Assessment / Plan
Assessment / Plan
# SEPSIS- source most likely PNA
- 04/21 CXR showed patchy opacity in RLL
- WBC 10.1k
- continue doxycycline 100mg Q12 day 5/14 days
- Patient's mental status is improved significantly
- Influenza negative
- suspicion of tickborne illness: ruled out by negative smear
# Fever of unknown Origin
- Afebrile for more than 48 hours
- Covid negative
- hepatitis profile, [place], YESSICA, HIV, COVID pending
- PO cefdinir day 03/01
- PCT. 6.44
- Covid, HIV, MONO negative
- YESSICA, hepatitis profile pending
- pending serum ammonia(LFTs elevated)
- USG Liver outpatient
# Myeloproliferative disorder
- cont to hold Jakafi
- plts and Wbc improving
- Follow-up with heme-onc
# Hypokalemia
- resolved
- potassium chloride prn
# Glaucoma
- Continue timolol drops
Full code
DVT prophylaxis�heparin on hold due to thrombocyntopenia
Regular diet
Anticipated Discharge: Today
Subjective/Interval History
-
Date of Service: April 25, 2024
Objective Data
-
Labs:
Laboratory Results
04/25/24
07:32
WBC 10.1
Hgb 8.4 L
Hct 24.1 L
Plt Count 62 L D
Sodium 132 L
Potassium 3.5
Chloride 102
Carbon Dioxide 27
BUN 15
Creatinine 0.5 L
Glucose 109 H
Calcium 7.5 L
Total Bilirubin 0.6
AST 123 H
ALT 104 H
Alkaline Phosphatase 83
Vital Signs:
Vital Signs
Temp Pulse Resp BP Pulse Ox
97.8 F 90 16 112/63 97
04/25/24 15:33 04/25/24 15:33 04/25/24 15:33 04/25/24 15:33 04/25/24 15:33
I&O
04/24/24 04/25/24 04/26/24
06:59 06:59 06:59
Intake Total 1800 / 1800 240 / 240 600 / 600
Balance 1800 / 1800 240 / 240 600 / 600
Review of Systems
-
History Source: Patient
Constitutional: Denies Fever
Respiratory: Denies Cough
Cardiac: Denies Chest Pain
Abdomen/GI: Denies Abdominal Pain
Physical Exam
-
General: Well Developed and Well Nourished
HEENT: Normocephalic and Atraumatic
Respiratory: Clear to Auscultation
Cardiac: Regular Rhythm and S1/S2
GI: Soft and Nontender
Neuro: Awake and Alert
Psych: Calm
Data Reviewed
-
Labs: Labs Reviewed by me, Discussed with Physician and Discussed with Patient
[2024-04-25 19:19] LABS: Hepatitis B Surface Antigen Negative (Negative)
[2024-04-25 19:37] LABS: Hepatitis B Core Ab, Total Negative (Negative); Hepatitis B Surface Antibody Negative; Hepatitis C Antibody Negative (Negative)
[2024-04-25 19:39] LABS: Hepatitis A Antibody, Total Negative (Negative)
[2024-04-25 22:32] LABS: ANA, IgG Reflex to HEp-2 None Detected (None Detected)
== END 2024-04-25 16:27 | disposition home or self-care (01) | DRG 871 ==
LOC: 4 WEST ACU 22:50
PROVIDERS: Emergency Medicine; Internal Medicine; Student in an Organized Health Care Education/Training Program; ADMITTING PHYSICIAN Hospitalist; ATTENDING PHYSICIAN Family Medicine; CONSULT PHYSICIAN Internal Medicine Hematology & Oncology; CONSULT PHYSICIAN Internal Medicine Infectious Disease; EMERGENCY PHYSICIAN Emergency Medicine; FAMILY PHYSICIAN Nurse Practitioner
DX: A41.9 Sepsis, unspecified organism (principal); J18.9 Pneumonia, unspecified organism; D47.1 Chronic myeloproliferative disease; Z11.52 Encounter for screening for COVID-19; D69.6 Thrombocytopenia, unspecified; M81.0 Age-related osteoporosis without current pathological fracture; D46.9 Myelodysplastic syndrome, unspecified
CPT/HCPCS: 51701; 70450; 71045; 71046; 80048; 80053; 80076; 81003; 81015; 82140; 82248; 82550; 83010; 83605; 83615; 83735; 84145; 85025; 85045; 85379; 85384; 85610; 85730; 86038; 86308; 86704; 86706; 86708; 86709; 86803; 87015; 87040; 87086; 87207; 87340; 87389; 87502; 87811; 96361; 96374; 97116; 97163; 97167; 99285

== ENCOUNTER → 2024-04-30 08:30 | Outpatient (REF) | payer MEDICARE, SELFPAY ==
[2024-04-30 18:29] LABS: Hematocrit 26.1 % (37.0-47.0); Hemoglobin 8.4 g/dL (12.0-16.0); Mean Corp Hgb Conc. 32.2 g/dL (33.0-37.0); Mean Corpuscular Hgb 29.3 pg (27.0-31.0); Mean Corpuscular Volume 90.9 fL (81.0-99.0); Mean Platelet Volume 10.2 fL (7.4-10.4); Platelet Count 180 10^3/uL (130-400); Red Blood Cell Count 2.87 10^6/uL (4.20-5.40); Red Cell Dist. Width 22.1 % (11.5-14.5); White Blood Cell Count 15.7 10^3/uL (4.8-10.8)
[2024-04-30 19:14] LABS: Absolute Neutrophils -Man Diff 11.3 10^3/uL (1.4-6.5); Band Neutrophils 7 % (0-3); Segmented Neutrophils 65 % (42-75)
[2024-04-30 19:15] LABS: Lymphocytes 23 % (20-51); Monocytes 3 % (2-9)
[2024-04-30 19:17] LABS: Anisocytosis 1+; Normal RBC Morphology No; Platelets Checked Yes
[2024-04-30 19:18] LABS: Ovalocytes 1+; Polychromasia 1+; Tear Drop Red Blood Cells Slight
[2024-04-30 19:19] LABS: Total Cells Counted 100
== END ==
LOC: CLAB 08:30
PROVIDERS: ATTENDING PHYSICIAN Internal Medicine Hematology & Oncology; FAMILY PHYSICIAN Family Medicine
DX: R53.83 Other fatigue (principal); D46.9 Myelodysplastic syndrome, unspecified; D47.3 Essential (hemorrhagic) thrombocythemia; D75.81 Myelofibrosis
CPT/HCPCS: 85025

== ENCOUNTER → 2024-05-02 18:20 | Outpatient (REF) | payer MEDICARE, SELFPAY ==
[2024-05-02 18:37] LABS: Hematocrit 26.3 % (37.0-47.0); Hemoglobin 8.4 g/dL (12.0-16.0); Mean Corp Hgb Conc. 31.9 g/dL (33.0-37.0); Mean Corpuscular Hgb 29.6 pg (27.0-31.0); Mean Corpuscular Volume 92.6 fL (81.0-99.0); Mean Platelet Volume 10.4 fL (7.4-10.4); Platelet Count 213 10^3/uL (130-400); Red Blood Cell Count 2.84 10^6/uL (4.20-5.40); Red Cell Dist. Width 22.2 % (11.5-14.5); White Blood Cell Count 14.7 10^3/uL (4.8-10.8)
[2024-05-02 19:04] LABS: Iron 96 ug/dl (37-170)
[2024-05-02 19:14] LABS: Percent Saturation 43 % (20-50); Total Iron Binding Capacity 219 ug/dl (265-497)
[2024-05-02 19:54] LABS: Absolute Neutrophils -Man Diff 9.2 10^3/uL (1.4-6.5); Atypical Lymphocytes 5 %; Band Neutrophils 0 % (0-3); Eosinophils 2 % (0-6); Lymphocytes 10 % (20-51); Metamyelocytes 3 % (-); Monocytes 6 % (2-9); Myelocytes 10 % (-); Normal RBC Morphology No; Platelets Checked Yes; Promyelocytes 1 % (-); Segmented Neutrophils 63 % (42-75)
[2024-05-02 19:55] LABS: Nucleated Red Blood Cells 19 (-)
[2024-05-02 19:58] LABS: Anisocytosis 2+; Polychromasia Slight
[2024-05-02 19:59] LABS: Basophilic Stippling 3+; Ovalocytes 1+; Tear Drop Red Blood Cells 1+; Total Cells Counted 100
[2024-05-02 20:01] LABS: Burr Cells 1+
== END ==
LOC: CLAB 18:20
PROVIDERS: ATTENDING PHYSICIAN Internal Medicine Hematology & Oncology; FAMILY PHYSICIAN Family Medicine
DX: D47.3 Essential (hemorrhagic) thrombocythemia (principal); D75.81 Myelofibrosis; R53.83 Other fatigue; E87.1 Hypo-osmolality and hyponatremia; R74.01 Elevation of levels of liver transaminase levels
CPT/HCPCS: 36415; 82728; 83540; 83550; 85025

== ENCOUNTER → 2024-05-06 10:20 | Outpatient (REF) | payer MEDICARE, SELFPAY ==
[2024-05-06 18:09] LABS: Hematocrit 28.2 % (37.0-47.0); Hemoglobin 9.1 g/dL (12.0-16.0); Mean Corp Hgb Conc. 32.3 g/dL (33.0-37.0); Mean Corpuscular Volume 95.9 fL (81.0-99.0); Mean Platelet Volume 10.2 fL (7.4-10.4); Platelet Count 224 10^3/uL (130-400); Red Blood Cell Count 2.94 10^6/uL (4.20-5.40); Red Cell Dist. Width 23.3 % (11.5-14.5); White Blood Cell Count 12.8 10^3/uL (4.8-10.8)
[2024-05-06 18:40] LABS: Atypical Lymphocytes 3 %; Band Neutrophils 5 % (0-3); Lymphocytes 14 % (20-51); Metamyelocytes 2 % (-); Monocytes 10 % (2-9); Myelocytes 13 % (-); Promyelocytes 1 % (-); Segmented Neutrophils 50 % (42-75)
[2024-05-06 18:41] LABS: Anisocytosis 3+; Basophilic Stippling 2+; Burr Cells 1+; Macrocytosis 1+; Microcytosis 2+; Normal RBC Morphology No; Nucleated Red Blood Cells 20 (-); Ovalocytes 1+; Platelets Checked Yes; Polychromasia 1+; Total Cells Counted 100
== END ==
LOC: CLAB 10:20
PROVIDERS: ATTENDING PHYSICIAN Internal Medicine Hematology & Oncology; FAMILY PHYSICIAN Family Medicine
DX: D46.9 Myelodysplastic syndrome, unspecified (principal); D47.3 Essential (hemorrhagic) thrombocythemia; D75.81 Myelofibrosis; R53.83 Other fatigue
CPT/HCPCS: 36415; 85025

== ENCOUNTER → 2024-05-09 17:54 | Outpatient (REF) | payer MEDICARE, SELFPAY ==
[2024-05-09 19:00] LABS: Hematocrit 29.9 % (37.0-47.0); Hemoglobin 9.5 g/dL (12.0-16.0); Mean Corp Hgb Conc. 31.8 g/dL (33.0-37.0); Mean Corpuscular Hgb 30.3 pg (27.0-31.0); Mean Corpuscular Volume 95.2 fL (81.0-99.0); Mean Platelet Volume 10.4 fL (7.4-10.4); Platelet Count 308 10^3/uL (130-400); Red Blood Cell Count 3.14 10^6/uL (4.20-5.40); White Blood Cell Count 17.9 10^3/uL (4.8-10.8)
[2024-05-09 19:35] LABS: % Basophils 3.2 % (0-2); % Eosinophils 1.6 % (0-6); % Immature Granulocytes 11.7 % (0-0.5); % Lymphocytes 14.5 % (20.5-51.1); Absolute Basophils 0.6 10^3/uL (0-0.2); Absolute Eosinophils 0.3 10^3/uL (0-0.7); Absolute Immature Granulocytes 2.1 10^3/uL (0-0.05); Absolute Lymphocytes 2.6 10^3/uL (1.2-3.4); Absolute Monocytes 2.3 10^3/uL (0.1-0.6); Nucleated Red Blood Cells % 11.2 %
== END ==
LOC: CLAB 17:54
PROVIDERS: ATTENDING PHYSICIAN Family Medicine; FAMILY PHYSICIAN Internal Medicine Hematology & Oncology
DX: D46.9 Myelodysplastic syndrome, unspecified (principal); D47.3 Essential (hemorrhagic) thrombocythemia; D75.81 Myelofibrosis; R53.83 Other fatigue
CPT/HCPCS: 36415; 85025

== ENCOUNTER → 2024-05-22 07:26 | Outpatient (REF) | payer MEDICARE, SELFPAY | LOC: HWRAD 07:26 | PROVIDERS: ATTENDING PHYSICIAN Family Medicine | DX: R74.01 Elevation of levels of liver transaminase levels (principal) | CPT/HCPCS: 76700 ==

== ENCOUNTER → 2024-06-04 07:41 | Outpatient (REF) | payer MEDICARE, SELFPAY | LOC: RAD 07:41 | PROVIDERS: ATTENDING PHYSICIAN Family Medicine | DX: R93.5 Abnormal findings on diagnostic imaging of other abdominal regions, including retroperitoneum (principal) | CPT/HCPCS: 74177; Q9967 ==

== ENCOUNTER → 2024-09-06 08:36 | Outpatient (REF) | payer MEDICARE, SELFPAY | LOC: RAD 08:36 | PROVIDERS: ATTENDING PHYSICIAN Family Medicine | DX: M81.0 Age-related osteoporosis without current pathological fracture (principal); Z78.0 Asymptomatic menopausal state | CPT/HCPCS: 77080 ==

== ENCOUNTER → 2024-10-04 07:59 | Outpatient (REF) | payer MEDICARE, SELFPAY | LOC: RAD 07:59 | PROVIDERS: ATTENDING PHYSICIAN Family Medicine; FAMILY PHYSICIAN Student in an Organized Health Care Education/Training Program | DX: R93.5 Abnormal findings on diagnostic imaging of other abdominal regions, including retroperitoneum (principal); R59.9 Enlarged lymph nodes, unspecified | CPT/HCPCS: 74177; Q9967 ==

== ENCOUNTER 2024-11-14 06:20 | Day surgery (SDC) | payer MEDICARE, SELFPAY | END 2024-11-14 13:42 | disposition home or self-care (01) | LOC: GI 06:20 | PROVIDERS: ATTENDING PHYSICIAN Student in an Organized Health Care Education/Training Program | DX: R93.3 Abnormal findings on diagnostic imaging of other parts of digestive tract (principal); K44.9 Diaphragmatic hernia without obstruction or gangrene; K22.89 Other specified disease of esophagus; K92.2 Gastrointestinal hemorrhage, unspecified; K25.9 Gastric ulcer, unspecified as acute or chronic, without hemorrhage or perforation; K31.89 Other diseases of stomach and duodenum | CPT/HCPCS: 43239; 88305; 88342 ==

== ENCOUNTER 2025-02-21 06:21 | Day surgery (SDC) | payer MEDICARE, SELFPAY | END 2025-02-21 11:40 | disposition home or self-care (01) | LOC: GI 06:21 | PROVIDERS: ATTENDING PHYSICIAN Student in an Organized Health Care Education/Training Program | DX: K22.89 Other specified disease of esophagus (principal); K22.9 Disease of esophagus, unspecified; K25.9 Gastric ulcer, unspecified as acute or chronic, without hemorrhage or perforation; K44.9 Diaphragmatic hernia without obstruction or gangrene; K31.89 Other diseases of stomach and duodenum | CPT/HCPCS: 43239; 88305; 88342 ==